=== PATIENT | female | born 1965 | race Caucasian/White ===

== ENCOUNTER 2017-06-24 07:12 | Inpatient (IN) | payer BC ==
[~2017-06-24 07:12] MED LIST: Famotidine 20 MG/2 ML SDV IVPUSH SCH; Ketorolac 30 MG/ML SDV IVPUSH SCH; Ropivacaine 49.25 ML, Ketorolac 30 MG, EPINEPHrine 0.5 MG, cloNIDine 80 MCG in Sodium C... INJECT ONE; Scopolamine 1.5 MG Transdermal Patch TRDERM SCH; ceFAZolin 1 GM in Premix Bag 1 BAG IV SCH; oxyCODONE ER 20 MG TAB.ER PO SCH
[2017-06-24] MEDS ORDERED: Propofol 200 MG/20 ML SDV ONE ×6 (07:33→10:38)
[2017-06-24] MEDS ORDERED: Lidocaine 2% 5 ML SDV ONE (07:33)
[2017-06-24] MEDS ORDERED: fentaNYL 100 MCG/2 ML SDV ONE ×2 (07:33→10:35)
[2017-06-24] MEDS ORDERED: ePHEDrine 50 MG/ML SDV ONE (07:34)
[2017-06-24] MEDS ORDERED: Midazolam 1 MG/ML 2 ML SDV ONE (07:34)
[2017-06-24] MEDS ORDERED: Ondansetron 4 MG/2 ML SDV ONE (07:34)
--- NOTE | 2017-06-24 07:34 | PCM.PREANE ---
Preanesthetic Assessment - Procedure Proposed Procedure: Bilateral total knee replacements - Anesthesia/Transfusion/Family Hx Anesthesia History: Prior Anesthesia Without Reaction Transfusion History: No Prior Transfusion(s) - Review of Systems General: No Symptoms Pulmonary: Other (hx of PE days after abdominoplasty in the past; resolved) Gastrointestinal: Other Neurological: Difficulty Walking (due to her knee pain) - Physical Assessment NPO Status Date: 06/23/17 NPO Status Time: 22:00 Height: 5 ft 6 in Weight: 170 lb ASA Class: 2 Mental Status: Alert & Oriented x3 Airway Class: Mallampati = 2 Dentition: Reports: Normal Dentition, Broken Tooth/Teeth (loose frontal lowers - pointed out by patient) Thyro-Mental Finger Breadths: 3 Mouth Opening Finger Breadths: 3 (sloped palate ) ROM/Head Extension: Limited/Partial Lungs: Clear to Auscultation, Normal Respiratory Effort Cardiovascular: Regular Rate, Regular Rhythm, No Murmurs Other: wears glasses - Allergies Allergies/Adverse Reactions: Allergies Allergy/AdvReac Type Severity Reaction Status Date / Time No Known Allergies Allergy Verified 06/19/17 13:25 - Blood Blood Available: Yes Product(s) Available: PRBC (T and S) - Anesthesia Plan Pre-Op Medication Ordered: Other (per surgeon) - Acknowledgements Anesthesia Type Planned: Spinal (probable general as well - patient dependent) Pt an Appropriate Candidate for the Planned Anesthesia: Yes Alternatives and Risks of Anesthesia Discussed w Pt/Guardian: Yes Pt/Guardian Understands and Agrees with Anesthesia Plan: Yes PreAnesthesia Questionnaire HEENT History: Reports: Other (See Below) Other HEENT History: wears glasses Cardiovascular History: Reports: Other (See Below) Other Cardiovascular History: hx en PE Respiratory History: Reports: PE Other Respiratory History: en PE following breast lumpectomy Gastrointestinal History: Reports: None Genitourinary History: Reports: None ACCOUNTING COORDINATOR History: Reports: Musculoskeletal History: Reports: Arthritis, Fracture Other Musculoskeletal History: hx fx arm as a child Psychiatric History: Reports: Depression Oncologic (Cancer) History: Reports: Breast - Past Surgical History Head Surgeries/Procedures: Reports: None GI Surgical History: Reports: Cholecystectomy Female Surgical History: Reports: Breast Biopsy, Section, Hysterectomy, Mastectomy Other Female Surgeries/Procedures: en mastectomy, c/section x3 - SUBSTANCE USE Smoking Status *Q: Never Smoker Recreational Drug Use History: No - HOME MEDS Home Medications: Home Meds Meloxicam 15 mg PO DAILY 06/19/17 [History] Venlafaxine [Effexor XR] 150 mg PO DAILY 06/19/17 [History] - CURRENT (IN HOUSE) MEDS Current Meds: Current Medications Famotidine (Pepcid) 40 mg IVPUSH ONARRIVE DULCE Stop: 06/24/17 15:00 Cefazolin Sodium/Dextrose 1 gm (/ Premix) 50 mls @ 100 mls/hr IV ONCALL DULCE Stop: 06/24/17 15:00 Lactated Ringer's (Ringers, Lactated) 1,000 mls @ 100 mls/hr IV ASDIRECTED DULCE Acetaminophen 1,000 mg/ Premix 100 mls @ 400 mls/hr IV ONCALL DULCE Stop: 06/24/17 15:00 Ketorolac Tromethamine (Toradol) 30 mg IVPUSH ONARRIVE DULCE Stop: 06/24/17 15:00 Oxycodone HCl (Oxycontin) 20 mg PO ONARRIVE DULCE Stop: 06/24/17 15:00 Scopolamine (Transderm-Scop) 1.5 mg TRDERM ONARRIVE DULCE Tranexamic Acid (Cyklokapron) 4,000 mg IV SEECOMMENT DULCE Stop: 06/24/17 15:00 Discontinued Medications Ropivacaine 49.25 ml/Ketorolac Tromethamine 30 mg/Epinephrine HCl 0.5 mg/ Clonidine HCl 80 mcg/ Sodium Chloride 100 mls @ 50 mls/min INJECT ONETIME ONE Stop: 06/24/17 06:01 Tranexamic Acid (Cyklokapron) Confirm Administered Dose 6,000 mg .ROUTE .STK- MED ONE Stop: 06/24/17 07:18
[2017-06-24] MEDS: Lactated Ringers 1,000 ML IV SCH ×2 (08:06→20:35)
[2017-06-24] MEDS: Acetaminophen 1,000 MG in Premix Bag 1 BAG IV SCH ×4 (08:08→20:47)
--- NOTE | 2017-06-24 08:33 | PCM.OPNOTE ---
- General Post-Op/Procedure Note Date of Surgery/Procedure: 06/24/17 Operative Procedure(s): B TKA Post-Op Diagnosis: DJD B knee Anesthesia Technique: General LMA, Spinal Primary Surgeon: Binta Gerardo Internal Controls Consultant: Dahiana Rascon Internal Controls Consultant: Jazz Hand EBL in mLs: 100 Condition: Good Free Text/Narrative:: tt=39 min L, 50 minutes R #[id number]
[2017-06-24] MEDS ORDERED: fentaNYL 100 MCG/2 ML SDV IVPUSH PRN (09:50)
[2017-06-24] MEDS ORDERED: HYDROmorphone 2 MG/ML Syringe IVPUSH ONE (09:50)
[2017-06-24] MEDS ORDERED: Ondansetron 4 MG/2 ML SDV IV PRN (11:12)
[2017-06-24] MEDS ORDERED: Bisacodyl 10 MG Supp RECTAL PRN (11:12)
[2017-06-24] MEDS ORDERED: diphenhydrAMINE 25 MG Cap PO PRN (11:12)
[2017-06-24] MEDS ORDERED: Morphine 4 MG/ML Syringe IVPUSH PRN (11:12)
[2017-06-24] MEDS ORDERED: Aluminum Hydroxide/Magnesium Hydroxide/Simethicone Susp 30 ML Cup PO PRN (11:12)
[2017-06-24] MEDS ORDERED: Ketorolac 30 MG/ML SDV IVPUSH SCH (11:15)
--- NOTE | 2017-06-24 12:09 | PCM.POSTAN ---
POST ANESTHESIA ASSESSMENT - MENTAL STATUS Mental Status: Alert, Oriented - VITAL SIGNS Pulse Rate: 92 SaO2: 99 Resp Rate: 14 Blood Pressure: 120/70 - RESPIRATORY Respiratory Status: Respiratory Rate WNL, Airway Patent, O2 Saturation Stable - CARDIOVASCULAR CV Status: Pulse Rate WNL, Blood Pressure Stable - GASTROINTESTINAL GI Status: No Symptoms - PAIN Pain Score: 5 - POST OP HYDRATION Hydration Status: Adequate & Stable
[2017-06-24] MEDS: oxyCODONE 5 MG Tab PO PRN ×2 (12:27→19:08)
--- NOTE | 2017-06-24 12:53 | OR ---
SURGEON: Binta Gerardo MD DATE OF PROCEDURE: 06/24/2017 PREOPERATIVE DIAGNOSIS: Degenerative joint disease, bilateral knees, tricompartmental. POSTOPERATIVE DIAGNOSIS: Degenerative joint disease, bilateral knees, tricompartmental. PROCEDURE: Bilateral total knee arthroplasty using patient-specific instrumentation. ASSISTANTS: 1. Jazz Hand PA-C. 2. Dahiana Rascon PA-C. ANESTHESIA: Spinal with sedation. ESTIMATED BLOOD LOSS: 100 mL. TOURNIQUET TIME: 39 minutes on the left and 50 minutes on the right. COMPLICATIONS: None. DVT PROPHYLAXIS: None. IMPLANTS USED: Kylie Persona femoral component size 8 standard (LPS) on the right and left femur, tibial component size F on bilateral tibia, 10 mm all-polyethylene articular surface bilaterally, and 32 mm all-polyethylene patella bilaterally. INTRAOPERATIVE FINDINGS: Showed severe tricompartmental degenerative changes on both the left and the right knee. No significant synovitis was noted. Osteophyte formation was also noted on the right knee. BRIEF HISTORY: Suly is a 51-year-old female, who has had complaint of progressive bilateral knee pain. She had failed conservative treatment. Due to her lack of response to conservative treatment, I did recommend surgical intervention. The risks and goals of procedure were discussed with the patient and were documented preoperatively. She agreed to proceed. DESCRIPTION OF PROCEDURE LEFT KNEE: The patient was properly identified and brought to the operating room. The patient was then transferred from the operating room cart and placed on the operating table in a supine position. Anesthesia was administered by the anesthesia staff. After adequate anesthesia was obtained, a well-padded tourniquet was applied to the surgical lower extremity. Perdomo catheter was placed. The lower extremity was then prepped in standard fashion using ChloraPrep solution. It was then sterilely draped. A time-out was performed to ensure correct site and procedure. Preoperative antibiotics were given along with one gram of tranexamic acid IV. The surgical site was not marked preoperatively, as it was a bilateral procedure. An Esmarch was used to exsanguinate the left lower extremity and the tourniquet was inflated. An incision was made over the anterior aspect of the knee. The subcutaneous tissues were dissected down to the level of the fascia. A medial parapatellar approach to the knee was made. A portion of the infrapatellar fat pad was then excised. The distal femur was then exposed. The femoral patient-specific cutting guide was then placed. Pins were also placed. The distal femoral cutting block was placed and the distal femoral cut was made. Instrumentation was then removed. Both Whitesides' line and the epicondylar axis were then marked with electrocautery. The 4-in-1 cutting block was placed. This was placed in a slightly externally rotated position, which corresponded well with the previously drawn lines. The cutting guide was then pinned into position. An Rashel wing guide was used to check the depth of resection of our anterior condylar cut and it was felt that no notching would occur. The anterior condylar cut was then made followed by the posterior condylar cut. Both the posterior chamfer and anterior chamfer cuts were then made. The cutting block was then removed along with the excess bony remnants. We then turned our attention to the tibia. The anterior cruciate ligament and posterior cruciate ligament were released and a posterior cruciate ligament retractor was placed to allow the tibia to be pulled anteriorly. The tibial patient-specific guide was then placed on the proximal tibia. This fit anatomically. The pins were then placed. The proximal tibia cutting guide was then placed and screwed into position. The proximal tibial resection was then made with care being taken to protect the patellar tendon. The bony resection was then removed. The remainder of the medial and lateral meniscus were then excised. Care was taken to protect the popliteus tendon. The tibia was then sized to the appropriate size. The distal femur was then elevated. The posterior capsule was stripped off the distal femur both medially and laterally. The posterior capsule along with the medial and lateral gutters were then injected with a standard mixture consisting of clonidine, epinephrine, Toradol, and Ropivacaine, unless any allergies were found preoperatively. The femoral component was then placed onto the distal femur in a slightly lateral position. This fit the femur well. A box cut was then made without difficulty. This was then removed. The tibial trial along with the polyethylene liner was then placed. The knee came easily into full extension and was stable to varus and valgus stressing both in full extension and flexion. Any additional releases were performed at this time. We then returned our attention to the patella. The patella was everted and towel clamps were used to hold the patella in position. It was resected to a 15 millimeter thickness. It was then sized to the appropriate size. It was prepared in the usual fashion after placing the predetermined size clamps. This was placed in a slightly superior and medial position. The clamp was then removed. The patellar trial button was placed. The knee was taken through a range of motion using the no-touch technique. The patella tracked centrally. A drop man was then placed to check alignment. All instruments were then removed from the knee. The tibial sizer was then placed on the tibia. The tibia was prepared in the usual fashion using the reamer and broach. This was then removed. All bony surfaces were copiously irrigated with Pulsavac solution. They were then suctioned dry. Cement was prepared on the back table in the usual manner. Once it was prepared, the bone ends were again suctioned dry. The tibia was cemented into place first. This was malleted into position. Excess cement was then cleared. The femur was then placed in a similar manner. We placed the polyethylene trial into place and the knee was brought into full extension. An axial load was placed while keeping the knee in full extension. The patella button was also cemented into position and the clamp was used to hold this in place as the cement was allowed to cure. The wound was again copiously irrigated with saline solution using a Pulsavac car jockey. Following this 1 g of tranexamic acid was applied to the wound topically. After we had adequate curing of the cement, the knee was again taken through a range of motion. The size of the polyethylene was then determined. The polyethylene trial was then removed. The tibial tray was suctioned to make sure there was no remaining soft tissue or cement. Excess cement was cleared from around the edges of the prosthesis as well. The tourniquet was then deflated. We were able to observe for any excess bleeding and none was noted. Electrocautery was used to maintain hemostasis. An additional gram of tranexamic acid was given IV. The retractors were again placed and the predetermined polyethylene was then placed. This was locked into position without difficulty. The knee was again taken through a range of motion with no change from the prior exam. The fascial layer was closed with Number One Vicryl. The subcutaneous tissues were closed with 2-0 Vicryl. The skin was closed with allison. Xeroform gauze was placed over the wound and a bulky dressing was applied. DESCRIPTION OF PROCEDURE RIGHT KNEE: An Esmarch was used to exsanguinate the right lower extremity and the tourniquet was inflated. An incision was made over the anterior aspect of the knee. The subcutaneous tissues were dissected down to the level of the fascia. A medial parapatellar approach to the knee was made. A portion of the infrapatellar fat pad was then excised. The distal femur was then exposed. The femoral patient-specific cutting guide was then placed. Pins were also placed. The distal femoral cutting block was placed and the distal femoral cut was made. Instrumentation was then removed. Both Whitesides' line and the epicondylar axis were then marked with electrocautery. The 4-in-1 cutting block was placed. This was placed in a slightly externally rotated position, which corresponded well with the previously drawn lines. The cutting guide was then pinned into position. An Rashel wing guide was used to check the depth of resection of our anterior condylar cut and it was felt that no notching would occur. The anterior condylar cut was then made followed by the posterior condylar cut. Both the posterior chamfer and anterior chamfer cuts were then made. The cutting block was then removed along with the excess bony remnants. We then turned our attention to the tibia. The anterior cruciate ligament and posterior cruciate ligament were released and a posterior cruciate ligament retractor was placed to allow the tibia to be pulled anteriorly. The tibial patient-specific guide was then placed on the proximal tibia. This fit anatomically. The pins were then placed. The proximal tibia cutting guide was then placed and screwed into position. The proximal tibial resection was then made with care being taken to protect the patellar tendon. The bony resection was then removed. The remainder of the medial and lateral meniscus were then excised. Care was taken to protect the popliteus tendon. The tibia was then sized to the appropriate size. The distal femur was then elevated. The posterior capsule was stripped off the distal femur both medially and laterally. The posterior capsule along with the medial and lateral gutters were then injected with a standard mixture consisting of clonidine, epinephrine, Toradol, and Ropivacaine, unless any allergies were found preoperatively. The femoral component was then placed onto the distal femur in a slightly lateral position. This fit the femur well. A box cut was then made without difficulty. This was then removed. The tibial trial along with the polyethylene liner was then placed. The knee came easily into full extension and was stable to varus and valgus stressing both in full extension and flexion. Any additional releases were performed at this time. We then returned our attention to the patella. The patella was everted and towel clamps were used to hold the patella in position. It was resected to a 15 millimeter thickness. It was then sized to the appropriate size. It was prepared in the usual fashion after placing the predetermined size clamps. This was placed in a slightly superior and medial position. The clamp was then removed. The patellar trial button was placed. The knee was taken through a range of motion using the no-touch technique. The patella tracked centrally. A drop man was then placed to check alignment. All instruments were then removed from the knee. The tibial sizer was then placed on the tibia. The tibia was prepared in the usual fashion using the reamer and broach. This was then removed. All bony surfaces were copiously irrigated with Pulsavac solution. They were then suctioned dry. Cement was prepared on the back table in the usual manner. Once it was prepared, the bone ends were again suctioned dry. The tibia was cemented into place first. This was malleted into position. Excess cement was then cleared. The femur was then placed in a similar manner. We placed the polyethylene trial into place and the knee was brought into full extension. An axial load was placed while keeping the knee in full extension. The patella button was also cemented into position and the clamp was used to hold this in place as the cement was allowed to cure. The wound was again copiously irrigated with saline solution using a Pulsavac car jockey. Following this 1 g of tranexamic acid was applied to the wound topically. After we had adequate curing of the cement, the knee was again taken through a range of motion. The size of the polyethylene was then determined. The polyethylene trial was then removed. The tibial tray was suctioned to make sure there was no remaining soft tissue or cement. Excess cement was cleared from around the edges of the prosthesis as well. The tourniquet was then deflated. We were able to observe for any excess bleeding and none was noted. Electrocautery was used to maintain hemostasis. An additional gram of tranexamic acid was given IV. The retractors were again placed and the predetermined polyethylene was then placed. This was locked into position without difficulty. The knee was again taken through a range of motion with no change from the prior exam. The fascial layer was closed with Number One Vicryl. The subcutaneous tissues were closed with 2-0 Vicryl. The skin was closed with allison. Xeroform gauze was placed over the wound and a bulky dressing was applied. The patient was then awakened from anesthesia and transferred back to the operating room cart. They were brought to the recovery room in stable condition. All needle and sponge counts were correct. TAMEKA SOSA /[id number] MTDAlma
[2017-06-24] MEDS: Ketorolac 30 MG/ML SDV IVPUSH SCH ×2 (13:19→20:41)
--- NOTE | 2017-06-24 15:59 | CR ---
EXAMINATION: Bilateral knees HISTORY: Arthroplasty COMPARISON: 05/21/2017 TECHNIQUE: 2 views bilaterally FINDINGS/IMPRESSION: Bilateral total knee hardware demonstrated in good position and alignment. Posto perative soft tissue changes are noted. No acute findings.
[2017-06-24] MEDS: ceFAZolin 1 GM in Premix Bag 1 BAG IV SCH (17:12)
[2017-06-24] MEDS: Venlafaxine 75 MG Cap.ER PO SCH (17:12)
--- NOTE | 2017-06-24 18:40 | PCM48HPAN ---
Post Anesthesia Note - EVALUATION WITHIN 48HRS OF ANESTHETIC Vital Signs in Normal Range: Yes Patient Participated in Evaluation: Yes Respiratory Function Stable: Yes Airway Patent: Yes Cardiovascular Function Stable: Yes Hydration Status Stable: Yes Pain Control Satisfactory: Yes Nausea and Vomiting Control Satisfactory: Yes Mental Status Recovered: Yes - COMMENTS/OBSERVATIONS Free Text/Narrative:: Pt doing well postop with no complaints of pain or nausea. Pt states she has been out of bed and walking already. No apparent anesthesia complications.
[2017-06-24] MEDS: Docusate Sodium 100 MG Cap PO SCH (20:39)
[2017-06-24] MEDS: oxyCODONE ER 20 MG TAB.ER PO SCH (20:39)
[2017-06-25] MEDS: oxyCODONE 5 MG Tab PO PRN ×6 (00:28→21:32)
[2017-06-25] MEDS: ceFAZolin 1 GM in Premix Bag 1 BAG IV SCH (00:29)
[2017-06-25] MEDS: Acetaminophen 500 MG Tab PO SCH ×4 (01:59→20:05)
[2017-06-25] MEDS: Ketorolac 30 MG/ML SDV IVPUSH SCH (02:00)
[2017-06-25] MEDS ORDERED: Sodium Chloride 0.9% 10 ML Syringe FLUSH PRN (08:28)
[2017-06-25] MEDS ORDERED: Sodium Chloride 0.9% 2.5 ML Syringe FLUSH PRN (08:28)
--- NOTE | 2017-06-25 08:28 | PCM.SURGPN ---
<Jazz Hand - Last Filed: 06/25/17 08:25> - General Info Date of Service: 06/25/17 Date of Surgery/Procedure: 06/24/17 POD#: 1 Functional Status: Reports: Pain Controlled, Tolerating Diet, Ambulating, Urinating - Review of Systems General: Reports: No Symptoms Pulmonary: Reports: No Symptoms Cardiovascular: Reports: No Symptoms Gastrointestinal: Reports: No Symptoms Genitourinary: Reports: No Symptoms Musculoskeletal: Reports: Leg Pain, Joint Pain, Joint Swelling Neurological: Reports: No Symptoms Psychiatric: Reports: No Symptoms - Patient Data Vitals - Most Recent: Last Vital Signs Temp 36.6 C 06/25/17 05:47 Pulse 97 06/25/17 05:47 Resp 19 06/25/17 05:47 BP 119/68 06/25/17 05:47 Pulse Ox 91 L 06/25/17 05:47 Weight - Most Recent: 77.111 kg I&O - Last 24 Hours: Intake & Output 06/24/17 06/25/17 06/25/17 22:59 06:59 14:59 Intake Total 1600 600 Output Total 425 1200 Balance 1175 -600 Lab Results Last 24 Hrs: Laboratory Results - last 24 hr 06/25/17 Range/Units 07:07 Hgb 11.4 L (12.0-16.0) g/dL Hct 36.2 (36.0-46.0) % Med Orders - Current: Current Medications Acetaminophen (Tylenol Extra Strength) 1,000 mg PO Q6H [facility] Last Admin: 06/25/17 07:53 Dose: 1,000 mg Al Hydroxide/Mg Hydroxide (Mag-Al Plus) 30 ml PO Q4H PRN PRN Reason: indigestion Bisacodyl (Dulcolax) 10 mg RECTAL DAILY PRN PRN Reason: Constipation Celecoxib (Celebrex) 200 mg PO DAILY [facility] Diphenhydramine HCl (Benadryl) 25 - 50 mg PO Q6H PRN PRN Reason: Itching Docusate Sodium (Colace) 100 mg PO BID [facility] Last Admin: 06/24/17 20:39 Dose: 100 mg Lactated Ringer's (Ringers, Lactated) 1,000 mls @ 100 mls/hr IV ASDIRECTED [facility] Last Admin: 06/24/17 20:35 Dose: 100 mls/hr Morphine Sulfate (Morphine) 1 - 3 mg IVPUSH Q3H PRN PRN Reason: Pain Ondansetron HCl (Zofran) 4 mg IV Q6HR PRN PRN Reason: NAUSEA/VOMITING Last Admin: 06/25/17 07:52 Dose: 4 mg Oxycodone HCl (Oxycodone) 5 - 10 mg PO Q4H PRN PRN Reason: Pain Last Admin: 06/25/17 05:47 Dose: 5 mg Oxycodone HCl (Oxycontin) 20 mg PO Q12HR [facility] Last Admin: 06/24/17 20:39 Dose: 20 mg Rivaroxaban (Xarelto) 10 mg PO DAILY [facility] Scopolamine (Transderm-Scop) 1.5 mg TRDERM ONARRIVE [facility] Last Admin: 06/24/17 08:06 Dose: 1.5 mg Venlafaxine HCl (Effexor Xr) 150 mg PO DAILY [facility] Last Admin: 06/24/17 17:12 Dose: 150 mg Discontinued Medications Aspirin (Aspirin) 325 mg PO BID [facility] Ephedrine Sulfate (Ephedrine Sulfate) Confirm Administered Dose 100 mg .ROUTE .STK-MED ONE Stop: 06/24/17 07:35 Famotidine (Pepcid) 40 mg IVPUSH ONARRIVE [facility] Stop: 06/24/17 15:00 Last Admin: 06/24/17 08:07 Dose: 40 mg Fentanyl (Sublimaze) Confirm Administered Dose 200 mcg .ROUTE .STK-MED ONE Stop: 06/24/17 07:34 Fentanyl (Sublimaze) 50 mcg IVPUSH Q5M PRN PRN Reason: Pain (severe 7-10) Stop: 06/25/17 09:50 Fentanyl (Sublimaze) Confirm Administered Dose 100 mcg .ROUTE .STK-MED ONE Stop: 06/24/17 10:36 Hydromorphone HCl (Dilaudid) 0 mg IVPUSH ONETIME ONE Stop: 06/24/17 09:51 Last Admin: 06/24/17 19:28 Dose: Not Given Cefazolin Sodium/Dextrose 1 gm (/ Premix) 50 mls @ 100 mls/hr IV ONCALL [facility] Stop: 06/24/17 15:00 Ropivacaine 49.25 ml/Ketorolac Tromethamine 30 mg/Epinephrine HCl 0.5 mg/ Clonidine HCl 80 mcg/ Sodium Chloride 100 mls @ 50 mls/min INJECT ONETIME ONE Stop: 06/24/17 06:01 Last Admin: 06/24/17 19:29 Dose: Not Given Acetaminophen 1,000 mg/ Premix 100 mls @ 400 mls/hr IV ONCALL [facility] Stop: 06/24/17 15:00 Last Admin: 06/24/17 08:12 Dose: 400 mls/hr Cefazolin Sodium/Dextrose (Ancef) Confirm Administered Dose 50 mls @ as directed .ROUTE .STK-MED ONE Stop: 06/24/17 07:33 Ropivacaine 49.25 ml/Ketorolac Tromethamine 30 mg/Epinephrine HCl 0.5 mg/ Clonidine HCl 80 mcg/ Sodium Chloride 100 mls @ 50 mls/min INJECT ONETIME ONE Stop: 06/24/17 06:01 Last Admin: 06/24/17 19:29 Dose: Not Given Acetaminophen 1,000 mg/ Premix 100 mls @ 400 mls/hr IV Q6H [facility] Stop: 06/24/17 20:14 Last Admin: 06/24/17 20:47 Dose: 400 mls/hr Cefazolin Sodium/Dextrose 1 gm (/ Premix) 50 mls @ 100 mls/hr IV Q8H [facility] Stop: 06/25/17 00:29 Last Admin: 06/25/17 00:29 Dose: 100 mls/hr Ketorolac Tromethamine (Toradol) 30 mg IVPUSH ONARRIVE [facility] Stop: 06/24/17 15:00 Last Admin: 06/24/17 08:07 Dose: 30 mg Ketorolac Tromethamine (Toradol) 30 mg IVPUSH ONARRIVE [facility] Ketorolac Tromethamine (Toradol) 30 mg IVPUSH Q6H [facility] Stop: 06/25/17 02:01 Last Admin: 06/25/17 02:00 Dose: 30 mg Lidocaine (Xylocaine-Mpf 2%) Confirm Administered Dose 10 ml .ROUTE .STK-MED ONE Stop: 06/24/17 07:34 Midazolam HCl (Versed 1 Mg/Ml) Confirm Administered Dose 2 mg .ROUTE .STK-MED ONE Stop: 06/24/17 07:35 Ondansetron HCl (Zofran) Confirm Administered Dose 4 mg .ROUTE .STK-MED ONE Stop: 06/24/17 07:35 Oxycodone HCl (Oxycontin) 20 mg PO ONARRIVE [facility] Stop: 06/24/17 15:00 Last Admin: 06/24/17 08:06 Dose: 20 mg Propofol (Diprivan 20 Ml) Confirm Administered Dose 400 mg .ROUTE .STK-MED ONE Stop: 06/24/17 07:34 Propofol (Diprivan 20 Ml) Confirm Administered Dose 200 mg .ROUTE .STK-MED ONE Stop: 06/24/17 08:58 Propofol (Diprivan 20 Ml) Confirm Administered Dose 200 mg .ROUTE .STK-MED ONE Stop: 06/24/17 09:25 Propofol (Diprivan 20 Ml) Confirm Administered Dose 200 mg .ROUTE .STK-MED ONE Stop: 06/24/17 10:15 Propofol (Diprivan 20 Ml) Confirm Administered Dose 200 mg .ROUTE .STK-MED ONE Stop: 06/24/17 10:19 Propofol (Diprivan 20 Ml) Confirm Administered Dose 200 mg .ROUTE .STK-MED ONE Stop: 06/24/17 10:39 Tranexamic Acid (Cyklokapron) 4,000 mg IV SEECOMMENT [facility] Stop: 06/24/17 15:00 Tranexamic Acid (Cyklokapron) Confirm Administered Dose 6,000 mg .ROUTE .STK- MED ONE Stop: 06/24/17 07:18 - Exam Wound/Incisions: Dressing Dry and Intact General: Alert, Oriented HEENT: Pupils Equal, Pupils Reactive Neck: Trachea Midline Lungs: Normal Respiratory Effort Cardiovascular: Regular Rate Extremities: Other (R and L anterior tibialis, extensor hallucis longus and gastrocnemius strength +5/5 bilaterally. Sensation intact. Dorsalis pedis and posterior tibial pulses +2 bilaterally. ) Neurological: No New Focal Deficit Psy/Mental Status: Alert, Normal Affect, Normal Mood - Problem List Review Problem List Initiated/Reviewed/Updated: Yes - My Orders Last 24 Hours: Active Orders 24 hr Category Date Time Status Patient Status [ADT] Routine ADT 06/24/17 08:30 Active Activity as Tolerated [RC] .Routine Care 06/24/17 11:12 Active Intake and Output [RC] Q12H Care 06/24/17 11:12 Active Neurovascular Check [RC] Q2HR Care 06/24/17 11:12 Active Notify Provider Vital Signs [RC] ASDIRECTED Care 06/24/17 11:12 Active RT Incentive Spirometry [RC] ASDIRECTED Care 06/24/17 11:12 Active Vital Signs [RC] Q4H Care 06/24/17 11:12 Active PT Evaluation and Treatment [CONS] Routine Cons 06/24/17 11:12 Active HEMOGLOBIN/HEMATOCRIT,HH [HEME] DAILY Lab 06/26/17 07:00 Ordered HEMOGLOBIN/HEMATOCRIT,HH [HEME] DAILY Lab 06/27/17 07:00 Ordered Acetaminophen [Tylenol Extra Strength] Med 06/25/17 02:00 Active 1,000 mg PO Q6H Alum Hydrox/Mag Hydrox/Simeth [Mag-Al Plus] Med 06/24/17 11:12 Active 30 ml PO Q4H PRN Bisacodyl [Dulcolax] Med 06/24/17 11:12 Active 10 mg RECTAL DAILY PRN Celecoxib [CeleBREX] Med 06/25/17 09:00 Active 200 mg PO DAILY Docusate Sodium [Colace] Med 06/24/17 21:00 Active 100 mg PO BID Morphine Med 06/24/17 11:12 Active 1 - 3 mg IVPUSH Q3H PRN Ondansetron [Zofran] Med 06/24/17 11:12 Active 4 mg IV Q6HR PRN Rivaroxaban [Xarelto] Med 06/25/17 09:00 Active 10 mg PO DAILY Venlafaxine [Effexor XR] Med 06/24/17 16:00 Active 150 mg PO DAILY diphenhydrAMINE [Benadryl] Med 06/24/17 11:12 Active 25 - 50 mg PO Q6H PRN oxyCODONE Med 06/24/17 11:12 Active 5 - 10 mg PO Q4H PRN oxyCODONE ER [OxyCONTIN] Med 06/24/17 21:00 Active 20 mg PO Q12HR Medication Orders Acetaminophen (Tylenol Extra Strength) 1,000 mg PO Q6H [facility] Last Admin: 06/25/17 07:53 Dose: 1,000 mg Admin: 06/25/17 01:59 Dose: 1,000 mg Al Hydroxide/Mg Hydroxide (Mag-Al Plus) 30 ml PO Q4H PRN PRN Reason: indigestion Bisacodyl (Dulcolax) 10 mg RECTAL DAILY PRN PRN Reason: Constipation Celecoxib (Celebrex) 200 mg PO DAILY [facility] Diphenhydramine HCl (Benadryl) 25 - 50 mg PO Q6H PRN PRN Reason: Itching Docusate Sodium (Colace) 100 mg PO BID [facility] Last Admin: 06/24/17 20:39 Dose: 100 mg Lactated Ringer's (Ringers, Lactated) 1,000 mls @ 100 mls/hr IV ASDIRECTED [facility] Last Admin: 06/24/17 20:35 Dose: 100 mls/hr Infusion: 06/24/17 18:06 Dose: 100 mls/hr Admin: 06/24/17 08:06 Dose: 100 mls/hr Morphine Sulfate (Morphine) 1 - 3 mg IVPUSH Q3H PRN PRN Reason: Pain Ondansetron HCl (Zofran) 4 mg IV Q6HR PRN PRN Reason: NAUSEA/VOMITING Last Admin: 06/25/17 07:52 Dose: 4 mg Oxycodone HCl (Oxycodone) 5 - 10 mg PO Q4H PRN PRN Reason: Pain Last Admin: 06/25/17 05:47 Dose: 5 mg Admin: 06/25/17 00:28 Dose: 5 mg Admin: 06/24/17 19:08 Dose: 5 mg Admin: 06/24/17 12:27 Dose: 10 mg Oxycodone HCl (Oxycontin) 20 mg PO Q12HR [facility] Last Admin: 06/24/17 20:39 Dose: 20 mg Rivaroxaban (Xarelto) 10 mg PO DAILY [facility] Scopolamine (Transderm-Scop) 1.5 mg TRDERM ONARRIVE [facility] Last Admin: 06/24/17 08:06 Dose: 1.5 mg Venlafaxine HCl (Effexor Xr) 150 mg PO DAILY [facility] Last Admin: 06/24/17 17:12 Dose: 150 mg - Assessment Assessment (Free Text/Narrative):: Patient up to chair this AM. Pain well controlled. Tolerating diet, did report nausea this AM. VSS. UO 2225 mL. Hgb 11.4. - Plan Plan (Free Text/Narrative):: Continue PT. Continue pain management. Discontinue brizuela and LRs. Encourage PO fluid intake. Start Xarelto 10mg daily for DVT prophylaxis. Probable discharge home tomorrow. <Binta Gerardo R - Last Filed: 06/25/17 18:20> - Patient Data Vitals - Most Recent: Last Vital Signs Temp 96.7 F 06/25/17 16:00 Pulse 119 H 06/25/17 16:00 Resp 16 06/25/17 16:00 BP 123/65 06/25/17 16:00 Pulse Ox 92 L 06/25/17 16:00 I&O - Last 24 Hours: Intake & Output 06/25/17 06/25/17 06/25/17 06:59 14:59 22:59 Intake Total 600 850 Output Total 1200 400 Balance -600 450 Lab Results Last 24 Hrs: Laboratory Results - last 24 hr 06/25/17 Range/Units 07:07 Hgb 11.4 L (12.0-16.0) g/dL Hct 36.2 (36.0-46.0) % Med Orders - Current: Current Medications Acetaminophen (Tylenol Extra Strength) 1,000 mg PO Q6H [facility] Last Admin: 06/25/17 13:02 Dose: 1,000 mg Al Hydroxide/Mg Hydroxide (Mag-Al Plus) 30 ml PO Q4H PRN PRN Reason: indigestion Bisacodyl (Dulcolax) 10 mg RECTAL DAILY PRN PRN Reason: Constipation Celecoxib (Celebrex) 200 mg PO DAILY [facility] Last Admin: 06/25/17 09:19 Dose: 200 mg Diphenhydramine HCl (Benadryl) 25 - 50 mg PO Q6H PRN PRN Reason: Itching Docusate Sodium (Colace) 100 mg PO BID [facility] Last Admin: 06/25/17 09:18 Dose: 100 mg Morphine Sulfate (Morphine) 1 - 3 mg IVPUSH Q3H PRN PRN Reason: Pain Ondansetron HCl (Zofran) 4 mg IV Q6HR PRN PRN Reason: NAUSEA/VOMITING Last Admin: 06/25/17 07:52 Dose: 4 mg Oxycodone HCl (Oxycodone) 5 - 10 mg PO Q4H PRN PRN Reason: Pain Last Admin: 06/25/17 17:17 Dose: 5 mg Oxycodone HCl (Oxycontin) 20 mg PO Q12HR [facility] Last Admin: 06/25/17 09:19 Dose: 20 mg Rivaroxaban (Xarelto) 10 mg PO DAILY [facility] Last Admin: 06/25/17 09:19 Dose: 10 mg Scopolamine (Transderm-Scop) 1.5 mg TRDERM ONARRIVE [facility] Last Admin: 06/24/17 08:06 Dose: 1.5 mg Sodium Chloride (Saline Flush) 10 ml FLUSH ASDIRECTED PRN PRN Reason: Keep Vein Open Sodium Chloride (Saline Flush) 2.5 ml FLUSH ASDIRECTED PRN PRN Reason: Keep Vein Open Venlafaxine HCl (Effexor Xr) 150 mg PO DAILY [facility] Last Admin: 06/25/17 09:18 Dose: 150 mg Discontinued Medications Aspirin (Aspirin) 325 mg PO BID [facility] Ephedrine Sulfate (Ephedrine Sulfate) Confirm Administered Dose 100 mg .ROUTE .STK-MED ONE Stop: 06/24/17 07:35 Famotidine (Pepcid) 40 mg IVPUSH ONARRIVE [facility] Stop: 06/24/17 15:00 Last Admin: 06/24/17 08:07 Dose: 40 mg Fentanyl (Sublimaze) Confirm Administered Dose 200 mcg .ROUTE .STK-MED ONE Stop: 06/24/17 07:34 Fentanyl (Sublimaze) 50 mcg IVPUSH Q5M PRN PRN Reason: Pain (severe 7-10) Stop: 06/25/17 09:50 Fentanyl (Sublimaze) Confirm Administered Dose 100 mcg .ROUTE .STK-MED ONE Stop: 06/24/17 10:36 Hydromorphone HCl (Dilaudid) 0 mg IVPUSH ONETIME ONE Stop: 06/24/17 09:51 Last Admin: 06/24/17 19:28 Dose: Not Given Cefazolin Sodium/Dextrose 1 gm (/ Premix) 50 mls @ 100 mls/hr IV ONCALL [facility] Stop: 06/24/17 15:00 Ropivacaine 49.25 ml/Ketorolac Tromethamine 30 mg/Epinephrine HCl 0.5 mg/ Clonidine HCl 80 mcg/ Sodium Chloride 100 mls @ 50 mls/min INJECT ONETIME ONE Stop: 06/24/17 06:01 Last Admin: 06/24/17 19:29 Dose: Not Given Lactated Ringer's (Ringers, Lactated) 1,000 mls @ 100 mls/hr IV ASDIRECTED [facility] Last Admin: 06/24/17 20:35 Dose: 100 mls/hr Acetaminophen 1,000 mg/ Premix 100 mls @ 400 mls/hr IV ONCALL [facility] Stop: 06/24/17 15:00 Last Admin: 06/24/17 08:12 Dose: 400 mls/hr Cefazolin Sodium/Dextrose (Ancef) Confirm Administered Dose 50 mls @ as directed .ROUTE .STK-MED ONE Stop: 06/24/17 07:33 Ropivacaine 49.25 ml/Ketorolac Tromethamine 30 mg/Epinephrine HCl 0.5 mg/ Clonidine HCl 80 mcg/ Sodium Chloride 100 mls @ 50 mls/min INJECT ONETIME ONE Stop: 06/24/17 06:01 Last Admin: 06/24/17 19:29 Dose: Not Given Acetaminophen 1,000 mg/ Premix 100 mls @ 400 mls/hr IV Q6H [facility] Stop: 06/24/17 20:14 Last Admin: 06/24/17 20:47 Dose: 400 mls/hr Cefazolin Sodium/Dextrose 1 gm (/ Premix) 50 mls @ 100 mls/hr IV Q8H [facility] Stop: 06/25/17 00:29 Last Admin: 06/25/17 00:29 Dose: 100 mls/hr Ketorolac Tromethamine (Toradol) 30 mg IVPUSH ONARRIVE [facility] Stop: 06/24/17 15:00 Last Admin: 06/24/17 08:07 Dose: 30 mg Ketorolac Tromethamine (Toradol) 30 mg IVPUSH ONARRIVE [facility] Ketorolac Tromethamine (Toradol) 30 mg IVPUSH Q6H [facility] Stop: 06/25/17 02:01 Last Admin: 06/25/17 02:00 Dose: 30 mg Lidocaine (Xylocaine-Mpf 2%) Confirm Administered Dose 10 ml .ROUTE .STK-MED ONE Stop: 06/24/17 07:34 Midazolam HCl (Versed 1 Mg/Ml) Confirm Administered Dose 2 mg .ROUTE .STK-MED ONE Stop: 06/24/17 07:35 Ondansetron HCl (Zofran) Confirm Administered Dose 4 mg .ROUTE .STK-MED ONE Stop: 06/24/17 07:35 Oxycodone HCl (Oxycontin) 20 mg PO ONARRIVE [facility] Stop: 06/24/17 15:00 Last Admin: 06/24/17 08:06 Dose: 20 mg Propofol (Diprivan 20 Ml) Confirm Administered Dose 400 mg .ROUTE .STK-MED ONE Stop: 06/24/17 07:34 Propofol (Diprivan 20 Ml) Confirm Administered Dose 200 mg .ROUTE .STK-MED ONE Stop: 06/24/17 08:58 Propofol (Diprivan 20 Ml) Confirm Administered Dose 200 mg .ROUTE .STK-MED ONE Stop: 06/24/17 09:25 Propofol (Diprivan 20 Ml) Confirm Administered Dose 200 mg .ROUTE .STK-MED ONE Stop: 06/24/17 10:15 Propofol (Diprivan 20 Ml) Confirm Administered Dose 200 mg .ROUTE .STK-MED ONE Stop: 06/24/17 10:19 Propofol (Diprivan 20 Ml) Confirm Administered Dose 200 mg .ROUTE .STK-MED ONE Stop: 06/24/17 10:39 Tranexamic Acid (Cyklokapron) 4,000 mg IV SEECOMMENT [facility] Stop: 06/24/17 15:00 Tranexamic Acid (Cyklokapron) Confirm Administered Dose 6,000 mg .ROUTE .STK- MED ONE Stop: 06/24/17 07:18 - My Orders Last 24 Hours: Active Orders 24 hr Category Date Time Status Urinary Catheter Removal [RC] Per Unit Routine Care 06/25/17 08:28 Active HEMOGLOBIN/HEMATOCRIT,HH [HEME] DAILY Lab 06/26/17 07:00 Ordered HEMOGLOBIN/HEMATOCRIT,HH [HEME] DAILY Lab 06/27/17 07:00 Ordered Acetaminophen [Tylenol Extra Strength] Med 06/25/17 02:00 Active 1,000 mg PO Q6H Celecoxib [CeleBREX] Med 06/25/17 09:00 Active 200 mg PO DAILY Docusate Sodium [Colace] Med 06/24/17 21:00 Active 100 mg PO BID Rivaroxaban [Xarelto] Med 06/25/17 09:00 Active 10 mg PO DAILY Sodium Chloride 0.9% [Saline Flush] Med 06/25/17 08:28 Active 10 ml FLUSH ASDIRECTED PRN Sodium Chloride 0.9% [Saline Flush] Med 06/25/17 08:28 Active 2.5 ml FLUSH ASDIRECTED PRN oxyCODONE ER [OxyCONTIN] Med 06/24/17 21:00 Active 20 mg PO Q12HR Convert IV to Saline Lock [OM.PC] Routine Oth 06/25/17 08:28 Ordered Medication Orders Acetaminophen (Tylenol Extra Strength) 1,000 mg PO Q6H [facility] Last Admin: 06/25/17 13:02 Dose: 1,000 mg Admin: 06/25/17 07:53 Dose: 1,000 mg Admin: 06/25/17 01:59 Dose: 1,000 mg Al Hydroxide/Mg Hydroxide (Mag-Al Plus) 30 ml PO Q4H PRN PRN Reason: indigestion Bisacodyl (Dulcolax) 10 mg RECTAL DAILY PRN PRN Reason: Constipation Celecoxib (Celebrex) 200 mg PO DAILY [facility] Last Admin: 06/25/17 09:19 Dose: 200 mg Diphenhydramine HCl (Benadryl) 25 - 50 mg PO Q6H PRN PRN Reason: Itching Docusate Sodium (Colace) 100 mg PO BID [facility] Last Admin: 06/25/17 09:18 Dose: 100 mg Admin: 06/24/17 20:39 Dose: 100 mg Morphine Sulfate (Morphine) 1 - 3 mg IVPUSH Q3H PRN PRN Reason: Pain Ondansetron HCl (Zofran) 4 mg IV Q6HR PRN PRN Reason: NAUSEA/VOMITING Last Admin: 06/25/17 07:52 Dose: 4 mg Oxycodone HCl (Oxycodone) 5 - 10 mg PO Q4H PRN PRN Reason: Pain Last Admin: 06/25/17 17:17 Dose: 5 mg Admin: 06/25/17 14:59 Dose: 5 mg Admin: 06/25/17 10:51 Dose: 10 mg Admin: 06/25/17 05:47 Dose: 5 mg Admin: 06/25/17 00:28 Dose: 5 mg Admin: 06/24/17 19:08 Dose: 5 mg Admin: 06/24/17 12:27 Dose: 10 mg Oxycodone HCl (Oxycontin) 20 mg PO Q12HR [facility] Last Admin: 06/25/17 09:19 Dose: 20 mg Admin: 12/11/17 20:39 Dose: 20 mg Rivaroxaban (Xarelto) 10 mg PO DAILY [facility] Last Admin: 06/25/17 09:19 Dose: 10 mg Scopolamine (Transderm-Scop) 1.5 mg TRDERM ONARRIVE [facility] Last Admin: 06/24/17 08:06 Dose: 1.5 mg Sodium Chloride (Saline Flush) 10 ml FLUSH ASDIRECTED PRN PRN Reason: Keep Vein Open Sodium Chloride (Saline Flush) 2.5 ml FLUSH ASDIRECTED PRN PRN Reason: Keep Vein Open Venlafaxine HCl (Effexor Xr) 150 mg PO DAILY [facility] Last Admin: 06/25/17 09:18 Dose: 150 mg Admin: 06/24/17 17:12 Dose: 150 mg - Plan Plan (Free Text/Narrative):: 1820 Patient seen and examined. Agree with above note. Patient doing well. Progressing with PT. Pain well controlled VSS, afeb hgb stable POD #1 1. continue PT and mobilization 2. Xarelto for DVT prophylaxis--h/o PE 3. plan discharge home tomorrow
[2017-06-25] MEDS ORDERED: Aspirin 325 MG Tab PO SCH (09:00)
[2017-06-25] MEDS: Docusate Sodium 100 MG Cap PO SCH ×2 (09:18→20:05)
[2017-06-25] MEDS: Venlafaxine 75 MG Cap.ER PO SCH (09:18)
[2017-06-25] MEDS: Celecoxib 100 MG Cap PO SCH (09:19)
[2017-06-25] MEDS: Rivaroxaban 10 MG Tab PO SCH (09:19)
[2017-06-25] MEDS: oxyCODONE ER 20 MG TAB.ER PO SCH ×2 (09:19→20:05)
[2017-06-26] MEDS: Acetaminophen 500 MG Tab PO SCH ×4 (01:52→20:08)
[2017-06-26] MEDS: oxyCODONE 5 MG Tab PO PRN ×3 (03:44→16:03)
[2017-06-26] MEDS: Docusate Sodium 100 MG Cap PO SCH ×2 (08:03→20:08)
[2017-06-26] MEDS: Rivaroxaban 10 MG Tab PO SCH (08:03)
[2017-06-26] MEDS: Celecoxib 100 MG Cap PO SCH (08:03)
[2017-06-26] MEDS: Venlafaxine 75 MG Cap.ER PO SCH (08:03)
[2017-06-26] MEDS: oxyCODONE ER 20 MG TAB.ER PO SCH ×2 (08:04→20:08)
--- NOTE | 2017-06-26 08:04 | PCM.SURGPN ---
- General Info Date of Service: 06/26/17 Date of Surgery/Procedure: 06/24/17 POD#: 2 Functional Status: Reports: Pain Controlled, Tolerating Diet, Ambulating, Urinating - Review of Systems General: Reports: No Symptoms Pulmonary: Reports: No Symptoms Cardiovascular: Reports: No Symptoms Gastrointestinal: Reports: No Symptoms Genitourinary: Reports: No Symptoms Musculoskeletal: Reports: Leg Pain, Joint Pain, Joint Swelling Neurological: Reports: No Symptoms Psychiatric: Reports: No Symptoms - Patient Data Vitals - Most Recent: Last Vital Signs Temp 36.3 C 06/26/17 04:00 Pulse 93 06/26/17 04:00 Resp 16 06/26/17 04:00 BP 114/59 L 06/26/17 04:00 Pulse Ox 95 06/26/17 04:00 Weight - Most Recent: 77.111 kg I&O - Last 24 Hours: Intake & Output 06/25/17 06/26/17 06/26/17 22:59 06:59 14:59 Intake Total 850 300 Output Total 400 1300 Balance 450 -1000 Lab Results Last 24 Hrs: Laboratory Results - last 24 hr 06/26/17 Range/Units 07:11 Hgb 11.3 L (12.0-16.0) g/dL Hct 35.8 L (36.0-46.0) % Med Orders - Current: Current Medications Acetaminophen (Tylenol Extra Strength) 1,000 mg PO Q6H [facility] Last Admin: 06/26/17 01:52 Dose: 1,000 mg Al Hydroxide/Mg Hydroxide (Mag-Al Plus) 30 ml PO Q4H PRN PRN Reason: indigestion Bisacodyl (Dulcolax) 10 mg RECTAL DAILY PRN PRN Reason: Constipation Celecoxib (Celebrex) 200 mg PO DAILY [facility] Last Admin: 06/25/17 09:19 Dose: 200 mg Diphenhydramine HCl (Benadryl) 25 - 50 mg PO Q6H PRN PRN Reason: Itching Docusate Sodium (Colace) 100 mg PO BID [facility] Last Admin: 06/25/17 20:05 Dose: 100 mg Morphine Sulfate (Morphine) 1 - 3 mg IVPUSH Q3H PRN PRN Reason: Pain Ondansetron HCl (Zofran) 4 mg IV Q6HR PRN PRN Reason: NAUSEA/VOMITING Last Admin: 06/25/17 07:52 Dose: 4 mg Oxycodone HCl (Oxycodone) 5 - 10 mg PO Q4H PRN PRN Reason: Pain Last Admin: 06/26/17 03:44 Dose: 5 mg Oxycodone HCl (Oxycontin) 20 mg PO Q12HR [facility] Last Admin: 06/25/17 20:05 Dose: 20 mg Rivaroxaban (Xarelto) 10 mg PO DAILY [facility] Last Admin: 06/25/17 09:19 Dose: 10 mg Scopolamine (Transderm-Scop) 1.5 mg TRDERM ONARRIVE [facility] Last Admin: 06/24/17 08:06 Dose: 1.5 mg Sodium Chloride (Saline Flush) 10 ml FLUSH ASDIRECTED PRN PRN Reason: Keep Vein Open Sodium Chloride (Saline Flush) 2.5 ml FLUSH ASDIRECTED PRN PRN Reason: Keep Vein Open Venlafaxine HCl (Effexor Xr) 150 mg PO DAILY [facility] Last Admin: 06/25/17 09:18 Dose: 150 mg Discontinued Medications Aspirin (Aspirin) 325 mg PO BID [facility] Ephedrine Sulfate (Ephedrine Sulfate) Confirm Administered Dose 100 mg .ROUTE .STK-MED ONE Stop: 06/24/17 07:35 Famotidine (Pepcid) 40 mg IVPUSH ONARRIVE [facility] Stop: 06/24/17 15:00 Last Admin: 06/24/17 08:07 Dose: 40 mg Fentanyl (Sublimaze) Confirm Administered Dose 200 mcg .ROUTE .STK-MED ONE Stop: 06/24/17 07:34 Fentanyl (Sublimaze) 50 mcg IVPUSH Q5M PRN PRN Reason: Pain (severe 7-10) Stop: 06/25/17 09:50 Fentanyl (Sublimaze) Confirm Administered Dose 100 mcg .ROUTE .STK-MED ONE Stop: 06/24/17 10:36 Hydromorphone HCl (Dilaudid) 0 mg IVPUSH ONETIME ONE Stop: 06/24/17 09:51 Last Admin: 06/24/17 19:28 Dose: Not Given Cefazolin Sodium/Dextrose 1 gm (/ Premix) 50 mls @ 100 mls/hr IV ONCALL [facility] Stop: 06/24/17 15:00 Ropivacaine 49.25 ml/Ketorolac Tromethamine 30 mg/Epinephrine HCl 0.5 mg/ Clonidine HCl 80 mcg/ Sodium Chloride 100 mls @ 50 mls/min INJECT ONETIME ONE Stop: 06/24/17 06:01 Last Admin: 06/24/17 19:29 Dose: Not Given Lactated Ringer's (Ringers, Lactated) 1,000 mls @ 100 mls/hr IV ASDIRECTED [facility] Last Admin: 06/24/17 20:35 Dose: 100 mls/hr Acetaminophen 1,000 mg/ Premix 100 mls @ 400 mls/hr IV ONCALL [facility] Stop: 06/24/17 15:00 Last Admin: 06/24/17 08:12 Dose: 400 mls/hr Cefazolin Sodium/Dextrose (Ancef) Confirm Administered Dose 50 mls @ as directed .ROUTE .STK-MED ONE Stop: 06/24/17 07:33 Ropivacaine 49.25 ml/Ketorolac Tromethamine 30 mg/Epinephrine HCl 0.5 mg/ Clonidine HCl 80 mcg/ Sodium Chloride 100 mls @ 50 mls/min INJECT ONETIME ONE Stop: 06/24/17 06:01 Last Admin: 06/24/17 19:29 Dose: Not Given Acetaminophen 1,000 mg/ Premix 100 mls @ 400 mls/hr IV Q6H [facility] Stop: 06/24/17 20:14 Last Admin: 06/24/17 20:47 Dose: 400 mls/hr Cefazolin Sodium/Dextrose 1 gm (/ Premix) 50 mls @ 100 mls/hr IV Q8H [facility] Stop: 06/25/17 00:29 Last Admin: 06/25/17 00:29 Dose: 100 mls/hr Ketorolac Tromethamine (Toradol) 30 mg IVPUSH ONARRIVE [facility] Stop: 06/24/17 15:00 Last Admin: 06/24/17 08:07 Dose: 30 mg Ketorolac Tromethamine (Toradol) 30 mg IVPUSH ONARRIVE [facility] Ketorolac Tromethamine (Toradol) 30 mg IVPUSH Q6H [facility] Stop: 06/25/17 02:01 Last Admin: 06/25/17 02:00 Dose: 30 mg Lidocaine (Xylocaine-Mpf 2%) Confirm Administered Dose 10 ml .ROUTE .STK-MED ONE Stop: 06/24/17 07:34 Midazolam HCl (Versed 1 Mg/Ml) Confirm Administered Dose 2 mg .ROUTE .STK-MED ONE Stop: 06/24/17 07:35 Ondansetron HCl (Zofran) Confirm Administered Dose 4 mg .ROUTE .STK-MED ONE Stop: 06/24/17 07:35 Oxycodone HCl (Oxycontin) 20 mg PO ONARRIVE [facility] Stop: 06/24/17 15:00 Last Admin: 06/24/17 08:06 Dose: 20 mg Propofol (Diprivan 20 Ml) Confirm Administered Dose 400 mg .ROUTE .STK-MED ONE Stop: 06/24/17 07:34 Propofol (Diprivan 20 Ml) Confirm Administered Dose 200 mg .ROUTE .STK-MED ONE Stop: 06/24/17 08:58 Propofol (Diprivan 20 Ml) Confirm Administered Dose 200 mg .ROUTE .STK-MED ONE Stop: 06/24/17 09:25 Propofol (Diprivan 20 Ml) Confirm Administered Dose 200 mg .ROUTE .STK-MED ONE Stop: 06/24/17 10:15 Propofol (Diprivan 20 Ml) Confirm Administered Dose 200 mg .ROUTE .STK-MED ONE Stop: 06/24/17 10:19 Propofol (Diprivan 20 Ml) Confirm Administered Dose 200 mg .ROUTE .STK-MED ONE Stop: 06/24/17 10:39 Tranexamic Acid (Cyklokapron) 4,000 mg IV SEECOMMENT [facility] Stop: 06/24/17 15:00 Tranexamic Acid (Cyklokapron) Confirm Administered Dose 6,000 mg .ROUTE .STK- MED ONE Stop: 06/24/17 07:18 - Exam Wound/Incisions: Dressing Dry and Intact (Dressing changed today.) General: Alert, Oriented HEENT: Pupils Equal, Pupils Reactive Neck: Trachea Midline Lungs: Normal Respiratory Effort Cardiovascular: Regular Rate Extremities: Other (R and L anterior tibialis, extensor hallucis longus and gastrocnemius strength +5/5 bilaterally. Sensation intact. Dorsalis pedis and posterior tibial pulses +2 bilaterally.) Neurological: No New Focal Deficit Psy/Mental Status: Alert, Normal Affect, Normal Mood - Problem List Review Problem List Initiated/Reviewed/Updated: Yes - My Orders Last 24 Hours: Active Orders 24 hr Category Date Time Status Urinary Catheter Removal [RC] Per Unit Routine Care 06/25/17 08:28 Active HEMOGLOBIN/HEMATOCRIT,HH [HEME] DAILY Lab 06/27/17 07:00 Ordered Celecoxib [CeleBREX] Med 06/25/17 09:00 Active 200 mg PO DAILY Rivaroxaban [Xarelto] Med 06/25/17 09:00 Active 10 mg PO DAILY Sodium Chloride 0.9% [Saline Flush] Med 06/25/17 08:28 Active 10 ml FLUSH ASDIRECTED PRN Sodium Chloride 0.9% [Saline Flush] Med 06/25/17 08:28 Active 2.5 ml FLUSH ASDIRECTED PRN Convert IV to Saline Lock [OM.PC] Routine Oth 06/25/17 08:28 Ordered Medication Orders Acetaminophen (Tylenol Extra Strength) 1,000 mg PO Q6H [facility] Last Admin: 06/26/17 01:52 Dose: 1,000 mg Admin: 06/25/17 20:05 Dose: 1,000 mg Admin: 06/25/17 13:02 Dose: 1,000 mg Admin: 06/25/17 07:53 Dose: 1,000 mg Admin: 06/25/17 01:59 Dose: 1,000 mg Al Hydroxide/Mg Hydroxide (Mag-Al Plus) 30 ml PO Q4H PRN PRN Reason: indigestion Bisacodyl (Dulcolax) 10 mg RECTAL DAILY PRN PRN Reason: Constipation Celecoxib (Celebrex) 200 mg PO DAILY [facility] Last Admin: 06/25/17 09:19 Dose: 200 mg Diphenhydramine HCl (Benadryl) 25 - 50 mg PO Q6H PRN PRN Reason: Itching Docusate Sodium (Colace) 100 mg PO BID [facility] Last Admin: 06/25/17 20:05 Dose: 100 mg Admin: 06/25/17 09:18 Dose: 100 mg Admin: 06/24/17 20:39 Dose: 100 mg Morphine Sulfate (Morphine) 1 - 3 mg IVPUSH Q3H PRN PRN Reason: Pain Ondansetron HCl (Zofran) 4 mg IV Q6HR PRN PRN Reason: NAUSEA/VOMITING Last Admin: 06/25/17 07:52 Dose: 4 mg Oxycodone HCl (Oxycodone) 5 - 10 mg PO Q4H PRN PRN Reason: Pain Last Admin: 06/26/17 03:44 Dose: 5 mg Admin: 06/25/17 21:32 Dose: 10 mg Admin: 06/25/17 17:17 Dose: 5 mg Admin: 06/25/17 14:59 Dose: 5 mg Admin: 06/25/17 10:51 Dose: 10 mg Admin: 06/25/17 05:47 Dose: 5 mg Admin: 06/25/17 00:28 Dose: 5 mg Admin: 06/24/17 19:08 Dose: 5 mg Admin: 06/24/17 12:27 Dose: 10 mg Oxycodone HCl (Oxycontin) 20 mg PO Q12HR [facility] Last Admin: 06/25/17 20:05 Dose: 20 mg Admin: 06/25/17 09:19 Dose: 20 mg Admin: 06/24/17 20:39 Dose: 20 mg Rivaroxaban (Xarelto) 10 mg PO DAILY [facility] Last Admin: 06/25/17 09:19 Dose: 10 mg Scopolamine (Transderm-Scop) 1.5 mg TRDERM ONARRIVE [facility] Last Admin: 06/24/17 08:06 Dose: 1.5 mg Sodium Chloride (Saline Flush) 10 ml FLUSH ASDIRECTED PRN PRN Reason: Keep Vein Open Sodium Chloride (Saline Flush) 2.5 ml FLUSH ASDIRECTED PRN PRN Reason: Keep Vein Open Venlafaxine HCl (Effexor Xr) 150 mg PO DAILY [facility] Last Admin: 06/25/17 09:18 Dose: 150 mg Admin: 06/24/17 17:12 Dose: 150 mg - Assessment Assessment (Free Text/Narrative):: Patient awake in bed this AM. Tolerating diet. Pain well controlled. VSS. Hgb 11.3. UO 1700mL. - Plan Plan (Free Text/Narrative):: Continue PT. Continue PO pain management. Encourage PO fluid intake. Discharge home tomorrow.
--- NOTE | 2017-06-26 15:48 | PCM.SN ---
- Free Text/Narrative Note: Patient seen and examined. Currently in bed. Has been up with PT today and did do some walking. Still slow getting out of bed. Pain controlled with po meds. No other complaints. VSS, afeb hgb stable Dressing dry intact BLE. NVI. POD#2 1. continue PT and mobilization 2. Xarelto for DVT prophylaxis 3. plan discharge tomorrow am after PT 4. patient agrees with plan
[2017-06-27] MEDS: Acetaminophen 500 MG Tab PO SCH ×2 (02:03→07:47)
[2017-06-27] MEDS: Venlafaxine 75 MG Cap.ER PO SCH (07:59)
[2017-06-27] MEDS: Celecoxib 100 MG Cap PO SCH (07:59)
[2017-06-27] MEDS: Docusate Sodium 100 MG Cap PO SCH (08:00)
[2017-06-27] MEDS: oxyCODONE ER 20 MG TAB.ER PO SCH (08:00)
[2017-06-27] MEDS: Rivaroxaban 10 MG Tab PO SCH (08:00)
--- NOTE | 2017-06-27 08:49 | PCM.SURGPN ---
- General Info Date of Service: 06/27/17 Date of Surgery/Procedure: 06/24/17 POD#: 3 Functional Status: Reports: Pain Controlled, Tolerating Diet, Ambulating, Urinating - Review of Systems General: Reports: No Symptoms Pulmonary: Reports: No Symptoms Cardiovascular: Reports: No Symptoms Gastrointestinal: Reports: No Symptoms Genitourinary: Reports: No Symptoms Musculoskeletal: Reports: Leg Pain, Joint Pain, Joint Swelling Neurological: Reports: No Symptoms Psychiatric: Reports: No Symptoms - Patient Data Vitals - Most Recent: Last Vital Signs Temp 36.8 C 06/27/17 07:42 Pulse 119 H 06/27/17 07:42 Resp 16 06/27/17 07:42 BP 122/78 06/27/17 07:42 Pulse Ox 95 06/27/17 07:42 Weight - Most Recent: 77.111 kg I&O - Last 24 Hours: Intake & Output 06/26/17 06/27/17 06/27/17 22:59 06:59 14:59 Intake Total 1050 800 Output Total 1400 800 Balance -350 0 Lab Results Last 24 Hrs: Laboratory Results - last 24 hr 06/27/17 Range/Units 07:02 Hgb 11.7 L (12.0-16.0) g/dL Hct 36.4 (36.0-46.0) % Med Orders - Current: Current Medications Acetaminophen (Tylenol Extra Strength) 1,000 mg PO Q6H [facility] Last Admin: 06/27/17 07:47 Dose: 1,000 mg Al Hydroxide/Mg Hydroxide (Mag-Al Plus) 30 ml PO Q4H PRN PRN Reason: indigestion Bisacodyl (Dulcolax) 10 mg RECTAL DAILY PRN PRN Reason: Constipation Celecoxib (Celebrex) 200 mg PO DAILY [facility] Last Admin: 06/27/17 07:59 Dose: 200 mg Diphenhydramine HCl (Benadryl) 25 - 50 mg PO Q6H PRN PRN Reason: Itching Docusate Sodium (Colace) 100 mg PO BID [facility] Last Admin: 06/27/17 08:00 Dose: 100 mg Morphine Sulfate (Morphine) 1 - 3 mg IVPUSH Q3H PRN PRN Reason: Pain Ondansetron HCl (Zofran) 4 mg IV Q6HR PRN PRN Reason: NAUSEA/VOMITING Last Admin: 06/25/17 07:52 Dose: 4 mg Oxycodone HCl (Oxycodone) 5 - 10 mg PO Q4H PRN PRN Reason: Pain Last Admin: 06/26/17 16:03 Dose: 10 mg Oxycodone HCl (Oxycontin) 20 mg PO Q12HR [facility] Last Admin: 06/27/17 08:00 Dose: 20 mg Rivaroxaban (Xarelto) 10 mg PO DAILY [facility] Last Admin: 06/27/17 08:00 Dose: 10 mg Scopolamine (Transderm-Scop) 1.5 mg TRDERM ONARRIVE [facility] Last Admin: 06/24/17 08:06 Dose: 1.5 mg Sodium Chloride (Saline Flush) 10 ml FLUSH ASDIRECTED PRN PRN Reason: Keep Vein Open Sodium Chloride (Saline Flush) 2.5 ml FLUSH ASDIRECTED PRN PRN Reason: Keep Vein Open Venlafaxine HCl (Effexor Xr) 150 mg PO DAILY [facility] Last Admin: 06/27/17 07:59 Dose: 150 mg Discontinued Medications Aspirin (Aspirin) 325 mg PO BID [facility] Ephedrine Sulfate (Ephedrine Sulfate) Confirm Administered Dose 100 mg .ROUTE .STK-MED ONE Stop: 06/24/17 07:35 Famotidine (Pepcid) 40 mg IVPUSH ONARRIVE [facility] Stop: 06/24/17 15:00 Last Admin: 06/24/17 08:07 Dose: 40 mg Fentanyl (Sublimaze) Confirm Administered Dose 200 mcg .ROUTE .STK-MED ONE Stop: 06/24/17 07:34 Fentanyl (Sublimaze) 50 mcg IVPUSH Q5M PRN PRN Reason: Pain (severe 7-10) Stop: 06/25/17 09:50 Fentanyl (Sublimaze) Confirm Administered Dose 100 mcg .ROUTE .STK-MED ONE Stop: 06/24/17 10:36 Hydromorphone HCl (Dilaudid) 0 mg IVPUSH ONETIME ONE Stop: 06/24/17 09:51 Last Admin: 06/24/17 19:28 Dose: Not Given Cefazolin Sodium/Dextrose 1 gm (/ Premix) 50 mls @ 100 mls/hr IV ONCALL [facility] Stop: 06/24/17 15:00 Ropivacaine 49.25 ml/Ketorolac Tromethamine 30 mg/Epinephrine HCl 0.5 mg/ Clonidine HCl 80 mcg/ Sodium Chloride 100 mls @ 50 mls/min INJECT ONETIME ONE Stop: 06/24/17 06:01 Last Admin: 06/24/17 19:29 Dose: Not Given Lactated Ringer's (Ringers, Lactated) 1,000 mls @ 100 mls/hr IV ASDIRECTED [facility] Last Admin: 06/24/17 20:35 Dose: 100 mls/hr Acetaminophen 1,000 mg/ Premix 100 mls @ 400 mls/hr IV ONCALL [facility] Stop: 06/24/17 15:00 Last Admin: 06/24/17 08:12 Dose: 400 mls/hr Cefazolin Sodium/Dextrose (Ancef) Confirm Administered Dose 50 mls @ as directed .ROUTE .STK-MED ONE Stop: 06/24/17 07:33 Ropivacaine 49.25 ml/Ketorolac Tromethamine 30 mg/Epinephrine HCl 0.5 mg/ Clonidine HCl 80 mcg/ Sodium Chloride 100 mls @ 50 mls/min INJECT ONETIME ONE Stop: 06/24/17 06:01 Last Admin: 06/24/17 19:29 Dose: Not Given Acetaminophen 1,000 mg/ Premix 100 mls @ 400 mls/hr IV Q6H [facility] Stop: 06/24/17 20:14 Last Admin: 06/24/17 20:47 Dose: 400 mls/hr Cefazolin Sodium/Dextrose 1 gm (/ Premix) 50 mls @ 100 mls/hr IV Q8H [facility] Stop: 06/25/17 00:29 Last Admin: 06/25/17 00:29 Dose: 100 mls/hr Ketorolac Tromethamine (Toradol) 30 mg IVPUSH ONARRIVE [facility] Stop: 06/24/17 15:00 Last Admin: 06/24/17 08:07 Dose: 30 mg Ketorolac Tromethamine (Toradol) 30 mg IVPUSH ONARRIVE [facility] Ketorolac Tromethamine (Toradol) 30 mg IVPUSH Q6H [facility] Stop: 06/25/17 02:01 Last Admin: 06/25/17 02:00 Dose: 30 mg Lidocaine (Xylocaine-Mpf 2%) Confirm Administered Dose 10 ml .ROUTE .STK-MED ONE Stop: 06/24/17 07:34 Midazolam HCl (Versed 1 Mg/Ml) Confirm Administered Dose 2 mg .ROUTE .STK-MED ONE Stop: 06/24/17 07:35 Ondansetron HCl (Zofran) Confirm Administered Dose 4 mg .ROUTE .STK-MED ONE Stop: 06/24/17 07:35 Oxycodone HCl (Oxycontin) 20 mg PO ONARRIVE [facility] Stop: 06/24/17 15:00 Last Admin: 06/24/17 08:06 Dose: 20 mg Propofol (Diprivan 20 Ml) Confirm Administered Dose 400 mg .ROUTE .STK-MED ONE Stop: 06/24/17 07:34 Propofol (Diprivan 20 Ml) Confirm Administered Dose 200 mg .ROUTE .STK-MED ONE Stop: 06/24/17 08:58 Propofol (Diprivan 20 Ml) Confirm Administered Dose 200 mg .ROUTE .STK-MED ONE Stop: 06/24/17 09:25 Propofol (Diprivan 20 Ml) Confirm Administered Dose 200 mg .ROUTE .STK-MED ONE Stop: 06/24/17 10:15 Propofol (Diprivan 20 Ml) Confirm Administered Dose 200 mg .ROUTE .STK-MED ONE Stop: 06/24/17 10:19 Propofol (Diprivan 20 Ml) Confirm Administered Dose 200 mg .ROUTE .STK-MED ONE Stop: 06/24/17 10:39 Tranexamic Acid (Cyklokapron) 4,000 mg IV SEECOMMENT [facility] Stop: 06/24/17 15:00 Tranexamic Acid (Cyklokapron) Confirm Administered Dose 6,000 mg .ROUTE .STK- MED ONE Stop: 06/24/17 07:18 - Exam Wound/Incisions: Dressing Dry and Intact General: Alert, Oriented HEENT: Pupils Equal, Pupils Reactive Neck: Trachea Midline Lungs: Normal Respiratory Effort Cardiovascular: Regular Rate Extremities: Other (R and L anterior tibialis, extensor hallucis longus and gastrocnemius strength +5/5 bilaterally. Sensation intact. Dorsalis pedis and posterior tibial pulses +2 bilaterally.) Neurological: No New Focal Deficit Psy/Mental Status: Alert, Normal Affect, Normal Mood - Problem List Review Problem List Initiated/Reviewed/Updated: Yes - My Orders Last 24 Hours: Medication Orders Acetaminophen (Tylenol Extra Strength) 1,000 mg PO Q6H [facility] Last Admin: 06/27/17 07:47 Dose: 1,000 mg Admin: 06/27/17 02:03 Dose: 1,000 mg Admin: 06/26/17 20:08 Dose: 1,000 mg Admin: 06/26/17 13:27 Dose: 1,000 mg Admin: 06/26/17 08:03 Dose: 1,000 mg Admin: 06/26/17 01:52 Dose: 1,000 mg Admin: 06/25/17 20:05 Dose: 1,000 mg Admin: 06/25/17 13:02 Dose: 1,000 mg Admin: 06/25/17 07:53 Dose: 1,000 mg Admin: 06/25/17 01:59 Dose: 1,000 mg Al Hydroxide/Mg Hydroxide (Mag-Al Plus) 30 ml PO Q4H PRN PRN Reason: indigestion Bisacodyl (Dulcolax) 10 mg RECTAL DAILY PRN PRN Reason: Constipation Celecoxib (Celebrex) 200 mg PO DAILY [facility] Last Admin: 06/27/17 07:59 Dose: 200 mg Admin: 06/26/17 08:03 Dose: 200 mg Admin: 06/25/17 09:19 Dose: 200 mg Diphenhydramine HCl (Benadryl) 25 - 50 mg PO Q6H PRN PRN Reason: Itching Docusate Sodium (Colace) 100 mg PO BID [facility] Last Admin: 06/27/17 08:00 Dose: 100 mg Admin: 06/26/17 20:08 Dose: 100 mg Admin: 06/26/17 08:03 Dose: 100 mg Admin: 06/25/17 20:05 Dose: 100 mg Admin: 06/25/17 09:18 Dose: 100 mg Admin: 06/24/17 20:39 Dose: 100 mg Morphine Sulfate (Morphine) 1 - 3 mg IVPUSH Q3H PRN PRN Reason: Pain Ondansetron HCl (Zofran) 4 mg IV Q6HR PRN PRN Reason: NAUSEA/VOMITING Last Admin: 06/25/17 07:52 Dose: 4 mg Oxycodone HCl (Oxycodone) 5 - 10 mg PO Q4H PRN PRN Reason: Pain Last Admin: 06/26/17 16:03 Dose: 10 mg Admin: 06/26/17 11:22 Dose: 10 mg Admin: 06/26/17 03:44 Dose: 5 mg Admin: 06/25/17 21:32 Dose: 10 mg Admin: 06/25/17 17:17 Dose: 5 mg Admin: 06/25/17 14:59 Dose: 5 mg Admin: 06/25/17 10:51 Dose: 10 mg Admin: 06/25/17 05:47 Dose: 5 mg Admin: 06/25/17 00:28 Dose: 5 mg Admin: 06/24/17 19:08 Dose: 5 mg Admin: 06/24/17 12:27 Dose: 10 mg Oxycodone HCl (Oxycontin) 20 mg PO Q12HR [facility] Last Admin: 06/27/17 08:00 Dose: 20 mg Admin: 06/26/17 20:08 Dose: 20 mg Admin: 06/26/17 08:04 Dose: 20 mg Admin: 06/25/17 20:05 Dose: 20 mg Admin: 06/25/17 09:19 Dose: 20 mg Admin: 06/24/17 20:39 Dose: 20 mg Rivaroxaban (Xarelto) 10 mg PO DAILY [facility] Last Admin: 06/27/17 08:00 Dose: 10 mg Admin: 06/26/17 08:03 Dose: 10 mg Admin: 06/25/17 09:19 Dose: 10 mg Scopolamine (Transderm-Scop) 1.5 mg TRDERM ONARRIVE [facility] Last Admin: 06/24/17 08:06 Dose: 1.5 mg Sodium Chloride (Saline Flush) 10 ml FLUSH ASDIRECTED PRN PRN Reason: Keep Vein Open Sodium Chloride (Saline Flush) 2.5 ml FLUSH ASDIRECTED PRN PRN Reason: Keep Vein Open Venlafaxine HCl (Effexor Xr) 150 mg PO DAILY [facility] Last Admin: 06/27/17 07:59 Dose: 150 mg Admin: 06/26/17 08:03 Dose: 150 mg Admin: 06/25/17 09:18 Dose: 150 mg Admin: 06/24/17 17:12 Dose: 150 mg - Assessment Assessment (Free Text/Narrative):: Patient awake in bed this AM. Pain well controlled. Tolerating diet. VSS. Hgb 11.7. UO 2200 mL. - Plan Plan (Free Text/Narrative):: Continue PT. Continue pain management. Encourage PO fluid intake. Discharge home this afternoon.
--- NOTE | 2017-06-27 15:06 | PCM.SN ---
- Free Text/Narrative Note: Discharge summary Dressings changed prior to discharge. See discharge plan for complete list of discharge medications and instructions. Dictation#: [id number]
--- NOTE | 2017-06-28 15:21 | DISCH ---
DATE OF DISCHARGE: 06/27/2017 PRIMARY CARE PHYSICIAN: Mary Brar PCP ADMISSION DIAGNOSIS: Degenerative joint disease, bilateral knees, tricompartmental. OTHER MEDICAL DIAGNOSES: Blood clotting disorder. DISCHARGE DIAGNOSES: 1. Status post bilateral total knee arthroplasty. 2. Blood clotting disorder. BRIEF HISTORY: Suly is a 51-year-old female who has a complaint of progressive bilateral knee pain. She has failed conservative treatment. Due to her lack of response to conservative treatment, surgical intervention was recommended at that time. Operation was bilateral total knee arthroplasty. HOSPITAL COURSE: Pain was controlled with a combination of IV and p.o. pain medications. The patient did receive two doses of Ancef postoperatively for 24 hours of antibiotic coverage. She was followed by Physical Therapy during her hospital stay. Upon discharge, the patient's vital signs were stable and she was afebrile. Hemoglobin on the day of discharge was 11.7. Xarelto 10 mg daily was started on postoperative day #1 for DVT prophylaxis. Pain is currently controlled with oral pain medications only. She is tolerating oral intake and ambulating with wheeled walker. She feels comfortable with discharge to home today. DISCHARGE MEDICATIONS: 1. Oxycodone 5 mg. 2. OxyContin 20 mg. 3. Celebrex 200 mg. 4. Colace 100 mg. 5. Tylenol 500 mg. 6. Xarelto 10 mg. DISCHARGE INSTRUCTIONS: 1. The patient will follow up in the clinic on July 04, 2017. This appointment has been made for the patient. 2. Outpatient physical therapy 2 to 3 times per week for 4 to 6 weeks. 3. Polar Care to bilateral knees. 4. JUDSON hose to bilateral lower extremities, on in the morning and off in the evening. For complete medication reconciliation and discharge instructions, please refer to the patient's EHR. If the patient has questions or concerns prior to followup, she may call the clinic. DICTATED BY: Jazz Hand PA-C dictating for Dr. Binta Gerardo. KATHI / SHEILA /[id number]
== END 2017-06-27 11:15 | disposition home or self-care (01) | DRG 302 ==
LOC: MW.MS 07:12
PROVIDERS: ADMIT Orthopaedic Surgery; ATTEND Orthopaedic Surgery
PROC: 0SRD0J9 Replacement of Left Knee Joint with Synthetic Substitute, Cemented, Open Approach (ICD-10-PCS; principal; 2017-06-24)
PROC: 0SRC0J9 Replacement of Right Knee Joint with Synthetic Substitute, Cemented, Open Approach (ICD-10-PCS; 2017-06-24)
DX: M17.0 Bilateral primary osteoarthritis of knee (principal); M25.761 Osteophyte, right knee
CPT/HCPCS: 01402; 36415; 735602650; 73560-50; 85014; 85018; 86850; 86900; 86901; 88304; 88311; 97110-GP; 97161-GP; 97530-GP; A9270-GY; C1713; C1776; J0171; J0690; J0735; J1885; J2250; J2405; J2704; J2795; J3010; J7050; J7120

== ENCOUNTER 2017-09-16 07:01 | Day surgery (SDC) | payer BC ==
[2017-09-16] MEDS ORDERED: Ondansetron 4 MG/2 ML SDV ONE (07:15)
[2017-09-16] MEDS ORDERED: Succinylcholine/Normal Saline 200 MG/10 ML Syringe ONE (07:15)
[2017-09-16] MEDS ORDERED: Propofol 200 MG/20 ML SDV ONE (07:15)
[2017-09-16] MEDS ORDERED: Lidocaine 2% 5 ML SDV ONE (07:15)
[2017-09-16] MEDS ORDERED: fentaNYL 100 MCG/2 ML SDV ONE (07:15)
[2017-09-16] MEDS ORDERED: Rocuronium 10 MG/ML 10 ML Syringe ONE (07:15)
[2017-09-16] MEDS ORDERED: Midazolam 1 MG/ML 2 ML SDV ONE (07:16)
--- NOTE | 2017-09-16 07:33 | PCM.PREANE ---
Preanesthetic Assessment - Anesthesia/Transfusion/Family Hx Anesthesia History: Prior Anesthesia Without Reaction Family History of Anesthesia Reaction: No Transfusion History: No Prior Transfusion(s) - Review of Systems General: No Symptoms Pulmonary: No Symptoms Cardiovascular: No Symptoms Gastrointestinal: No Symptoms Neurological: No Symptoms Other: Reports: None - Physical Assessment NPO Status Date: 09/15/17 Height: 1.68 m Weight: 74.843 kg ASA Class: 2 Mental Status: Alert & Oriented x3 Airway Class: Mallampati = 1 Dentition: Reports: Normal Dentition ROM/Head Extension: Full Lungs: Clear to Auscultation, Normal Respiratory Effort Cardiovascular: Regular Rate, Regular Rhythm - Allergies Allergies/Adverse Reactions: Allergies Allergy/AdvReac Type Severity Reaction Status Date / Time No Known Allergies Allergy Verified 09/11/17 08:12 - Anesthesia Plan Pre-Op Medication Ordered: None - Acknowledgements Anesthesia Type Planned: General Anesthesia Pt an Appropriate Candidate for the Planned Anesthesia: Yes Alternatives and Risks of Anesthesia Discussed w Pt/Guardian: Yes Pt/Guardian Understands and Agrees with Anesthesia Plan: Yes PreAnesthesia Questionnaire HEENT History: Reports: Other (See Below) Other HEENT History: wears glasses Cardiovascular History: Reports: Other (See Below) Other Cardiovascular History: hx en PE Respiratory History: Reports: PE Other Respiratory History: en PE following breast lumpectomy Gastrointestinal History: Reports: None Genitourinary History: Reports: None 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: Musculoskeletal History: Reports: Arthritis, Fracture Other Musculoskeletal History: hx fx arm as a child Neurological History: Reports: None Psychiatric History: Reports: Depression Hematologic History: Reports: None Immunologic History: Reports: None Oncologic (Cancer) History: Reports: Breast Dermatologic History: Reports: None - Past Surgical History Head Surgeries/Procedures: Reports: None GI Surgical History: Reports: Cholecystectomy Female Surgical History: Reports: Breast Biopsy, Section, Hysterectomy, Mastectomy Other Female Surgeries/Procedures: en mastectomy, c/section x3 Musculoskeletal Surgical History: Reports: Knee Replacement Other Musculoskeletal Surgeries/Procedures:: hx en knee replacement - SUBSTANCE USE Smoking Status *Q: Never Smoker Recreational Drug Use History: No - HOME MEDS Home Medications: Home Meds Venlafaxine [Effexor XR] 150 mg PO DAILY 06/19/17 [History] Acetaminophen [Tylenol Extra Strength] 1 - 2 tab PO ASDIRECTED PRN 09/11/17 [ History] Meloxicam 15 mg PO DAILY 09/11/17 [History] - CURRENT (IN HOUSE) MEDS Current Meds: Current Medications Hydrocodone Bitart/Acetaminophen ([place] 325-5 Mg) 1 - 2 tab PO Q4H PRN PRN Reason: Pain Discontinued Medications Fentanyl (Sublimaze) Confirm Administered Dose 200 mcg .ROUTE .STK-MED ONE Stop: 09/16/17 07:16 Lidocaine (Xylocaine-Mpf 2%) Confirm Administered Dose 5 ml .ROUTE .STK-MED ONE Stop: 09/16/17 07:16 Midazolam HCl (Versed 1 Mg/Ml) Confirm Administered Dose 2 mg .ROUTE .STK-MED ONE Stop: 09/16/17 07:17 Ondansetron HCl (Zofran) Confirm Administered Dose 4 mg .ROUTE .STK-MED ONE Stop: 09/16/17 07:16 Propofol (Diprivan 20 Ml) Confirm Administered Dose 200 mg .ROUTE .STK-MED ONE Stop: 09/16/17 07:16 Rocuronium [place] (Zemuron) Confirm Administered Dose 100 mg .ROUTE .STK-MED ONE Stop: 09/16/17 07:16 Succinylcholine Chloride (Succinylcholine In Ns Pf) Confirm Administered Dose 200 mg .ROUTE .STK-MED ONE Stop: 09/16/17 07:16
[2017-09-16] MEDS ORDERED: Acetaminophen/HYDROcodone 325-5 MG Tab PO PRN (08:00)
[2017-09-16] MEDS ORDERED: Lactated Ringers 1,000 ML IV SCH (08:00)
--- NOTE | 2017-09-16 08:52 | PCM.OPNOTE ---
- General Post-Op/Procedure Note Date of Surgery/Procedure: 09/16/17 Operative Procedure(s): Bilateral TKA manipulation Post-Op Diagnosis: B knee arthrofibrosis, s/p TKA Anesthesia Technique: General Mask Primary Surgeon: Binta GRUBER in mLs: 0 Condition: Good Free Text/Narrative:: #[id number]
[2017-09-16] MEDS ORDERED: HYDROmorphone 2 MG/ML SDV IVPUSH ONE (10:01)
[2017-09-16] MEDS ORDERED: Ketorolac 30 MG/ML SDV IVPUSH ONE (10:39)
[2017-09-16] MEDS ORDERED: Acetaminophen 1,000 MG in Premix Bag 1 BAG IV ONE (10:41)
--- NOTE | 2017-09-16 13:20 | PCM48HPAN ---
Post Anesthesia Note - EVALUATION WITHIN 48HRS OF ANESTHETIC Vital Signs in Normal Range: Yes Patient Participated in Evaluation: Yes Respiratory Function Stable: Yes Airway Patent: Yes Cardiovascular Function Stable: Yes Hydration Status Stable: Yes Pain Control Satisfactory: Yes Nausea and Vomiting Control Satisfactory: Yes Mental Status Recovered: Yes Resp Rate: 12
--- NOTE | 2017-09-16 13:20 | PCM.POSTAN ---
POST ANESTHESIA ASSESSMENT - MENTAL STATUS Mental Status: Alert, Oriented - RESPIRATORY Respiratory Status: Respiratory Rate WNL, Airway Patent, O2 Saturation Stable - CARDIOVASCULAR CV Status: Pulse Rate WNL, Blood Pressure Stable - GASTROINTESTINAL GI Status: No Symptoms - PAIN Free Text/Narrative:: uncomfortable upon entry to phase 2, given dilaudid, tylenol (iv), and toradol with marked improvement. - POST OP HYDRATION Hydration Status: Adequate & Stable
--- NOTE | 2017-09-16 16:23 | OR ---
SURGEON: Binta Gerardo MD DATE OF PROCEDURE: 09/16/2017 PREOPERATIVE DIAGNOSES: Bilateral knee arthrofibrosis, status post bilateral total knee arthroplasty. POSTOPERATIVE DIAGNOSES: Bilateral knee arthrofibrosis, status post bilateral total knee arthroplasty. PROCEDURE: Bilateral total knee arthroplasty manipulation. FRUIT CUTTER: None. ANESTHESIA: General. ESTIMATED BLOOD LOSS: 0 mL. TOURNIQUET TIME: 0 minutes. COMPLICATIONS: None. DVT PROPHYLAXIS: Not indicated. IMPLANTS USED: None. BRIEF HISTORY: Suly is a 52-year-old female who previously underwent bilateral total knee arthroplasty. She has been compliant with her physical therapy, however, has developed some stiffness with flexion. She continues to have some pain with this as well. Due to her lack of response to conservative treatment, I did recommend surgical intervention. The risks and goals of procedure were discussed with the patient and were documented preoperatively. She agreed to proceed. DESCRIPTION OF PROCEDURE: The patient was properly identified and brought to the operating room. She was kept on the operating room cart. General anesthesia was administered with a paralytic. After adequate anesthesia and relaxation were achieved, a time-out was performed to ensure correct site and procedure. Preoperative antibiotics were not given. The surgical site had not been marked preoperatively due to the bilateral nature of the procedure. We first started with the right knee. Initially, she had approximately 95 degrees of flexion which was documented with photography. Gentle pressure was applied to the lower leg with both the hip and knee flexed. Lysis of adhesions was palpated within the knee joint as the knee continued to be flexed to nearly [address] the gel pad underneath her knee and did apply some downward pressure to attempt to achieve full extension as well. Final motion was 0 to 120 degrees. I then turned my attention to the left knee. A similar procedure was performed with the knee and hip at 90 degrees of flexion. She started with approximately 100 degrees of flexion at the knee. I was able to get her to 120 degrees at the completion of the procedure. This again was documented with photography. Her knees were also examined for stability. She had good varus and valgus stability. It did not appear to have significant anterior translation of the tibia. She was awakened from her anesthetic. She was brought to recovery room in stable condition. TAMEKA / SHEILA /[id number]
== END 2017-09-16 12:00 | disposition home or self-care (01) ==
LOC: MW.SDS 07:01
PROVIDERS: ATTEND Orthopaedic Surgery
DX: M24.661 Ankylosis, right knee (principal); M24.662 Ankylosis, left knee; M17.0 Bilateral primary osteoarthritis of knee; F32.9 Major depressive disorder, single episode, unspecified; Z85.3 Personal history of malignant neoplasm of breast; Z86.711 Personal history of pulmonary embolism; Z79.899 Other long term (current) drug therapy; Z96.653 Presence of artificial knee joint, bilateral
CPT/HCPCS: 27570; A9270; J1170; J1885; J2250; J2405; J3010; J7120; 01380; J2704

== ENCOUNTER 2019-01-12 09:41 | Inpatient (IN) | payer BC ==
[~2019-01-12 09:41] MED LIST changes: +Acetaminophen 1,000 MG in Premix Bag 1 BAG IV SCH; -Ketorolac 30 MG/ML SDV IVPUSH SCH; -Ropivacaine 49.25 ML, Ketorolac 30 MG, EPINEPHrine 0.5 MG, cloNIDine 80 MCG in Sodium C... INJECT ONE; +Ropivacaine 49.25 ML, Ketorolac 30 MG, EPINEPHrine 0.5 MG, cloNIDine 80 MCG in Sodium C... INJECT SCH; -oxyCODONE ER 20 MG TAB.ER PO SCH
--- NOTE | 2019-01-12 10:58 | PCM.PREANE ---
Preanesthetic Assessment - Anesthesia/Transfusion/Family Hx Anesthesia History: Prior Anesthesia Without Reaction Family History of Anesthesia Reaction: No Transfusion History: No Prior Transfusion(s) Intubation History: Unknown - Review of Systems General: No Symptoms Pulmonary: No Symptoms Cardiovascular: No Symptoms Gastrointestinal: No Symptoms Neurological: No Symptoms Other: Reports: None - Physical Assessment O2 Sat by Pulse Oximetry: 99 Respiratory Rate: 16 Vital Signs: Last Vital Signs Temp 36.2 C 01/12/19 10:51 Pulse 88 01/12/19 10:51 Resp 16 01/12/19 10:51 BP 137/84 01/12/19 10:51 Pulse Ox 99 01/12/19 10:51 Height: 5 ft 6 in Weight: 77.111 kg ASA Class: 2 Mental Status: Alert & Oriented x3 Airway Class: Mallampati = 2 Dentition: Reports: Bridge (fixed lower, front) Thyro-Mental Finger Breadths: 3 Mouth Opening Finger Breadths: 3 ROM/Head Extension: Full Lungs: Clear to Auscultation, Normal Respiratory Effort Cardiovascular: Regular Rate, Regular Rhythm - Allergies Allergies/Adverse Reactions: Allergies Allergy/AdvReac Type Severity Reaction Status Date / Time No Known Allergies Allergy Verified 01/07/19 12:41 - Blood Blood Available: No - Anesthesia Plan Pre-Op Medication Ordered: None - Acknowledgements Anesthesia Type Planned: Spinal Pt an Appropriate Candidate for the Planned Anesthesia: Yes Alternatives and Risks of Anesthesia Discussed w Pt/Guardian: Yes Pt/Guardian Understands and Agrees with Anesthesia Plan: Yes PreAnesthesia Questionnaire HEENT History: Reports: Other (See Below) Other HEENT History: wears glasses Cardiovascular History: Reports: Blood Clots/VTE/DVT, Other (See Below) Other Cardiovascular History: hx en PE following breast lumpectomy ', DVT rt leg after knee surgery '17 Respiratory History: Reports: PE Other Respiratory History: en PE following breast lumpectomy Gastrointestinal History: Reports: None Genitourinary History: Reports: None 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: Musculoskeletal History: Reports: Fracture, RA Other Musculoskeletal History: hx fx arm as a child Neurological History: Reports: None Psychiatric History: Reports: Depression Endocrine/Metabolic History: Reports: None Hematologic History: Reports: None Immunologic History: Reports: None Oncologic (Cancer) History: Reports: Breast, Ovarian Dermatologic History: Reports: None - Past Surgical History Head Surgeries/Procedures: Reports: None Cardiovascular Surgical History: Reports: None Respiratory Surgical History: Reports: None GI Surgical History: Reports: Cholecystectomy Female Surgical History: Reports: Breast Biopsy, Section, Hysterectomy, Mastectomy Other Female Surgeries/Procedures: en mastectomy, c/section x3 Endocrine Surgical History: Reports: None Neurological Surgical History: Reports: None Musculoskeletal Surgical History: Reports: Knee Replacement Other Musculoskeletal Surgeries/Procedures:: hx en knee replacement Oncologic Surgical History: Reports: Mastectomy (bilateral) Dermatological Surgical History: Reports: None - SUBSTANCE USE Smoking Status *Q: Never Smoker Recreational Drug Use History: No - HOME MEDS Home Medications: Home Meds Venlafaxine [Effexor XR] 150 mg PO DAILY 06/19/17 [History] Meloxicam 15 mg PO DAILY 09/11/17 [History] - CURRENT (IN HOUSE) MEDS Current Meds: Current Medications Famotidine (Pepcid) 40 mg IVPUSH ONARRIVE DULCE Acetaminophen 1,000 mg/ Premix 100 mls @ 400 mls/hr IV ONARRIVE DULCE Cefazolin Sodium/Dextrose 1 gm (/ Premix) 50 mls @ 100 mls/hr IV ONCALL DULCE Ropivacaine 49.25 ml/Ketorolac Tromethamine 30 mg/Epinephrine HCl 0.5 mg/ Clonidine HCl 80 mcg/ Sodium Chloride 75 mls @ 50 mls/sec INJECT ASDIRECTED DULCE Lactated Ringer's (Ringers, Lactated) 1,000 mls @ 100 mls/hr IV ASDIRECTED DULCE Scopolamine (Transderm-Scop) 1.5 mg TRDERM ONARRIVE DULCE Discontinued Medications Tranexamic Acid (Cyklokapron) Confirm Administered Dose 2,000 mg .ROUTE .STK- MED ONE Stop: 01/12/19 10:39
[2019-01-12] MEDS: Lactated Ringers 1,000 ML IV SCH ×2 (11:12→17:07)
[2019-01-12] MEDS ORDERED: Propofol 200 MG/20 ML SDV ONE ×2 (11:53→13:12)
[2019-01-12] MEDS ORDERED: Ondansetron 4 MG/2 ML SDV ONE (11:53)
[2019-01-12] MEDS ORDERED: Midazolam 1 MG/ML 2 ML SDV ONE (11:53)
[2019-01-12] MEDS ORDERED: fentaNYL 100 MCG/2 ML SDV ONE (11:53)
[2019-01-12] MEDS ORDERED: ceFAZolin 1 GM Vial ONE (11:55)
[2019-01-12] MEDS ORDERED: Sodium Chloride 0.9% 20 ML ONE (11:57)
[2019-01-12] MEDS ORDERED: ePHEDrine 50 MG/ML SDV ONE (12:47)
[2019-01-12] MEDS ORDERED: Ondansetron 4 MG/2 ML SDV IVPUSH PRN (13:42)
[2019-01-12] MEDS ORDERED: Sodium Chloride 0.9% 2.5 ML Syringe FLUSH PRN (13:42)
[2019-01-12] MEDS ORDERED: Docusate Sodium 100 MG Cap PO PRN (13:42)
[2019-01-12] MEDS ORDERED: Aluminum Hydroxide/Magnesium Hydroxide/Simethicone Susp 30 ML Cup PO PRN (13:42)
[2019-01-12] MEDS ORDERED: Bisacodyl 10 MG Supp RECTAL PRN (13:42)
[2019-01-12] MEDS ORDERED: diphenhydrAMINE 25 MG Cap PO PRN (13:42)
[2019-01-12] MEDS ORDERED: Sodium Chloride 0.9% 10 ML Syringe FLUSH PRN (13:42)
--- NOTE | 2019-01-12 14:00 | PCM.OPNOTE ---
- General Post-Op/Procedure Note Date of Surgery/Procedure: 01/12/19 Operative Procedure(s): Revision left TKA with poly exchange Post-Op Diagnosis: Painful L TKA with patella instability Anesthesia Technique: Moderate Sedation, Spinal Primary Surgeon: Binta Gerardo Credit Risk Specialist: Dahiana Rascon in mLs: 20 Condition: Good Free Text/Narrative:: tt= see nursing record #[id number]
[2019-01-12] MEDS ORDERED: Promethazine 25 MG/ML SDV ONE (14:34)
[2019-01-12] MEDS: Acetaminophen/oxyCODONE 325-5 MG Tab PO PRN ×2 (15:51→20:07)
[2019-01-12] MEDS: HYDROmorphone 1 MG/ML Syringe IVPUSH PRN (18:22)
[2019-01-12] MEDS: ceFAZolin 1 GM in Premix Bag 1 BAG IV SCH (20:09)
--- NOTE | 2019-01-12 20:11 | OR ---
SURGEON: Binta Gerardo MD DATE OF PROCEDURE: 01/12/2019 POSTOPERATIVE DIAGNOSES: 1. Painful left total knee arthroplasty. 2. Left knee patella instability. POSTOPERATIVE DIAGNOSES: 1. Painful left total knee arthroplasty. 2. Left knee patella instability. PROCEDURE: Revision left total knee arthroplasty with exchange of polyethylene liner. BANKING PARALEGAL: Dahiana Rascon PA-C. ANESTHESIA: Spinal with sedation. ESTIMATED BLOOD LOSS: 25 mL. TOURNIQUET TIME: See nursing record. COMPLICATIONS: None. DVT PROPHYLAXIS: PAS boot to the nonoperative leg. IMPLANTS USED: Kylie Persona polyethylene liner, size 11. BRIEF HISTORY: Suly is a 53-year-old female who previously underwent bilateral total knee arthroplasty. Her postoperative course was complicated by arthrofibrosis of both knees, and she subsequently underwent bilateral total knee arthroplasty manipulation approximately 1 year ago. She went on to do quite well. Approximately 1-1/2 weeks ago, she noticed increased pain and swelling in the left knee. She cannot recall a specific injury; however, states she had been doing a lot of gardening and was getting ready for her son's wedding. She was evaluated in clinic and found to have lateral displacement of the patella consistent with patellar instability. She had not had any fever or chills. Synovasure studies did show a negative Alpha Defensin and was also negative for infection. At that time, I recommended surgical intervention. The risks and goals of the procedure were discussed with the patient and were documented preoperatively. She agreed to proceed. DESCRIPTION OF PROCEDURE: The patient was properly identified and brought to the operating room. She was transferred from the OR cart and placed on the operating room table in the supine position. Spinal anesthesia was administered. After adequate anesthesia was obtained, the patient was placed in the supine position. A well-padded tourniquet was applied to the left lower extremity. The left lower extremity was then prepped in a standard fashion using ChloraPrep solution. It was then sterilely draped. A time-out was performed to ensure correct site and procedure. Preoperative antibiotics were given. The surgical site had been marked preoperatively. An Esmarch was used to exsanguinate the left lower extremity, and the tourniquet was inflated to 250 mmHg. The knee was then examined. No palpable defect was noted along the quadriceps or patellar tendon. She had flexion to 110 degrees with full extension. She had slight laxity with varus stressing. The site of the previous incision was then incised. The subcutaneous tissues were identified. The patellar retinaculum appeared intact. The patella was sitting in a slightly lateral position and the medial retinaculum tissue appeared quite thinned; however, it did remain intact. A medial parapatellar approach was then made. There was a small amount of joint fluid which was straw-colored. There was no evidence of infection. There was abundant scar tissue in the suprapatellar pouch and this was excised. The medial retinaculum tissue appeared to be robust. There did not appear to be any defect other than the abundance of tissue. The scar tissue around the patella was cleared. The scar tissue from the medial and lateral gutters was also removed. The previous polyethylene was then removed with an osteotome without difficulty. This did show mild wear along the medial aspect of the polyethylene. However, overall it was intact. This was a size 10. The knee was then copiously irrigated with 3 L of normal saline using a Pulsavac deliverer outside. The knee was again inspected. A tibiofemoral distractor was then placed and the posterior capsule was injected with a mixture of clonidine, ropivacaine with epinephrine, and Toradol. With a slight varus instability on exam, I elected to place a size 12 polyethylene. This was placed and locked into position without difficulty. The knee was again taken through a range of motion, and this now showed good stability with both varus and valgus stressing. At this point, the tourniquet was then deflated. The femoral and tibial component position were also inspected. There was a slight external rotation to both components and there did not appear to be malalignment of the components that led to the patellar instability. The patella was then re-centered over the trochlear groove on the component, and the knee was taken through a range of motion. The patella appeared to track centrally with a medial pull along the patella. Since the medial retinacular tissue appeared quite abundant, the medial retinaculum was repaired using #2 FiberWire in a [id number] fashion. Four sutures were placed with the #2 FiberWire and the remainder of the medial retinaculum were closed with #1 Vicryl. The knee was again taken through a range of motion, and the patella appeared to track centrally. There did not appear to be undue tension on the repair up to 90 degrees. The subcutaneous tissues were then closed with 2-0 Vicryl, and the skin was closed with allison. The remainder of the injection was injected along the subcutaneous tissues of the skin. Xeroform gauze was placed over the wound and a bulky dressing was applied. She was placed into a knee immobilizer. She was awakened from her anesthetic and transferred back to the operating room cart. She was brought to recovery room in stable condition. All needle and sponge counts were correct. TAMEKA / SHEILA /[id number]
[2019-01-13] MEDS: Lactated Ringers 1,000 ML IV SCH (03:16)
[2019-01-13] MEDS: ceFAZolin 1 GM in Premix Bag 1 BAG IV SCH (03:16)
[2019-01-13] MEDS: Acetaminophen/oxyCODONE 325-5 MG Tab PO PRN ×2 (03:17→08:05)
[2019-01-13] MEDS: HYDROmorphone 1 MG/ML Syringe IVPUSH PRN (05:47)
--- NOTE | 2019-01-13 08:09 | PCM.SURGPN ---
- General Info Date of Service: 01/13/19 Date of Surgery/Procedure: 01/12/19 POD#: 1 Functional Status: Reports: Pain Controlled, Tolerating Diet, Ambulating, Urinating - Review of Systems General: Reports: No Symptoms Pulmonary: Reports: No Symptoms Cardiovascular: Reports: No Symptoms Gastrointestinal: Reports: Nausea (controlled with medications) Musculoskeletal: Reports: Leg Pain Systems Review Comment:: pt up to chair for breakfast has been OOB to bathroom knee immobilizer in place pain controlled with pain medications available no specific concerns today would like to go home this afternoon - Patient Data Vitals - Most Recent: Last Vital Signs Temp 98 F 01/13/19 03:41 Pulse 74 01/13/19 03:41 Resp 15 01/13/19 03:41 BP 99/54 L 01/13/19 03:41 Pulse Ox 93 L 01/13/19 03:41 Weight - Most Recent: 77.111 kg I&O - Last 24 Hours: Intake & Output 01/12/19 01/13/19 01/13/19 22:59 06:59 14:59 Intake Total 50 2214 Output Total 0 1150 Balance 50 1064 Lab Results Last 24 Hrs: Laboratory Results - last 24 hr 01/12/19 01/13/19 Range/Units 11:04 05:45 Hgb 11.5 L (12.0-16.0) g/dL Hct 36.5 (36.0-46.0) % Blood Type O POSITIVE Antibody Screen NEGATIVE Med Orders - Current: Current Medications Al Hydroxide/Mg Hydroxide (Mag-Al Plus) 30 ml PO Q4H PRN PRN Reason: Indigestion Apixaban (Eliquis) 2.5 mg PO BID [facility] Bisacodyl (Dulcolax) 10 mg RECTAL DAILY PRN PRN Reason: Constipation Celecoxib (Celebrex) 200 mg PO BID DULCE Diphenhydramine HCl (Benadryl) 25 - 50 mg PO Q6H PRN PRN Reason: Itching Docusate Sodium (Colace) 100 mg PO BID PRN PRN Reason: Constipation Famotidine (Pepcid) 40 mg PO DAILY D[facility]CE Hydromorphone HCl (Dilaudid) 0.5 - 1 mg IVPUSH Q3H PRN PRN Reason: Pain Last Admin: 01/13/19 05:47 Dose: 1 mg Lactated Ringer's (Ringers, Lactated) 1,000 mls @ 100 mls/hr IV ASDIRECTED DULCE Last Admin: 01/13/19 03:16 Dose: 100 mls/hr Ondansetron HCl (Zofran) 4 mg IVPUSH Q6H PRN PRN Reason: Nausea/Vomiting Oxycodone/Acetaminophen (Percocet 325-5 Mg) 1 - 2 tab PO Q4H PRN PRN Reason: Pain Last Admin: 01/13/19 03:17 Dose: 2 tab Polyethylene Glycol (Miralax) 17 gm PO DAILY [facility] Scopolamine (Transderm-Scop) 1.5 mg TRDERM ONARRIVE DULCE Last Admin: 01/12/19 11:13 Dose: 1.5 mg Sodium Chloride (Saline Flush) 10 ml FLUSH ASDIRECTED PRN PRN Reason: Keep Vein Open Sodium Chloride (Saline Flush) 2.5 ml FLUSH ASDIRECTED PRN PRN Reason: Keep Vein Open Venlafaxine HCl (Effexor Xr) 150 mg PO DAILY DULCE Discontinued Medications Cefazolin Sodium (Ancef) Confirm Administered Dose 1 gm .ROUTE .STK-MED ONE Stop: 01/12/19 11:56 Ephedrine Sulfate (Ephedrine Sulfate) Confirm Administered Dose 50 mg .ROUTE .STK-MED ONE Stop: 01/12/19 12:48 Famotidine (Pepcid) 40 mg IVPUSH ONARRIVE [facility] Last Admin: 01/12/19 11:14 Dose: 40 mg Fentanyl (Sublimaze) Confirm Administered Dose 100 mcg .ROUTE .STK-MED ONE Stop: 01/12/19 11:54 Acetaminophen 1,000 mg/ Premix 100 mls @ 400 mls/hr IV ONARRIVE [facility] Last Admin: 01/12/19 11:15 Dose: 400 mls/hr Cefazolin Sodium/Dextrose 1 gm (/ Premix) 50 mls @ 100 mls/hr IV ONCALL [facility] Ropivacaine 49.25 ml/Ketorolac Tromethamine 30 mg/Epinephrine HCl 0.5 mg/ Clonidine HCl 80 mcg/ Sodium Chloride 75 mls @ 50 mls/sec INJECT ASDIRECTED [facility] Sodium Chloride (Normal Saline) Confirm Administered Dose 20 mls @ as directed .ROUTE .STK-MED ONE Stop: 01/12/19 11:58 Cefazolin Sodium/Dextrose 1 gm (/ Premix) 50 mls @ 100 mls/hr IV Q8H [facility] Stop: 01/13/19 04:29 Last Admin: 01/13/19 03:16 Dose: 100 mls/hr Midazolam HCl (Versed 1 Mg/Ml) Confirm Administered Dose 2 mg .ROUTE .STK-MED ONE Stop: 01/12/19 11:54 Ondansetron HCl (Zofran) Confirm Administered Dose 4 mg .ROUTE .STK-MED ONE Stop: 01/12/19 11:54 Promethazine HCl (Phenergan) Confirm Administered Dose 25 mg .ROUTE .STK-MED ONE Stop: 01/12/19 14:35 Last Admin: 01/12/19 14:37 Dose: 12.5 mg Propofol (Diprivan 20 Ml) Confirm Administered Dose 200 mg .ROUTE .STK-MED ONE Stop: 01/12/19 11:54 Propofol (Diprivan 20 Ml) Confirm Administered Dose 200 mg .ROUTE .STK-MED ONE Stop: 01/12/19 13:13 Tranexamic Acid (Cyklokapron) Confirm Administered Dose 2,000 mg .ROUTE .STK- MED ONE Stop: 01/12/19 10:39 - Exam Wound/Incisions: Dressing Dry and Intact. No: Drainage, Erythema General: Alert, Oriented Cardiovascular: Regular Rate, Regular Rhythm Extremities: Other (exam LLE - at/ehl/gastroc 5/5, dp 2+, sensation intact distally. incision c/d/allison intact. ) Physical Findings Comment:: vss, afeb hgb 11.5 - Problem List Review Problem List Initiated/Reviewed/Updated: Yes - My Orders Last 24 Hours: Active Orders 24 hr Category Date Time Status Communication Order [RC] PRN Care 01/12/19 13:42 Active Communication Order [RC] PRN Care 01/12/19 13:42 Active Insert Urinary Catheter [OM.PC] Q24H Care 01/12/19 08:00 Ordered Neurovascular Check [RC] Q2HR Care 01/12/19 13:42 Active Notify Provider Vital Signs [RC] ASDIRECTED Care 01/12/19 13:42 Active RT Incentive Spirometry [RC] Q1HWA Care 01/12/19 13:42 Active Vital Signs [RC] Q4H Care 01/12/19 13:42 Active Wound Care [RC] DAILY Care 01/12/19 13:42 Active PT Evaluation and Treatment [CONS] Routine Cons 01/12/19 13:42 Active HEMOGLOBIN/HEMATOCRIT,HH [HEME] DAILY Lab 01/14/19 06:00 Ordered Acetaminophen/oxyCODONE [Percocet 325-5 MG] Med 01/12/19 13:44 Active 1 - 2 tab PO Q4H PRN Alum Hydrox/Mag Hydrox/Simeth [Mag-Al Plus] Med 01/12/19 13:42 Active 30 ml PO Q4H PRN Apixaban [Eliquis] Med 01/13/19 09:00 Active 2.5 mg PO BID Bisacodyl [Dulcolax] Med 01/12/19 13:42 Active 10 mg RECTAL DAILY PRN Celecoxib [CeleBREX] Med 01/13/19 09:00 Active 200 mg PO BID Docusate Sodium [Colace] Med 01/12/19 13:42 Active 100 mg PO BID PRN Famotidine [Pepcid] Med 01/13/19 09:00 Active 40 mg PO DAILY HYDROmorphone [Dilaudid] Med 01/12/19 13:42 Active 0.5 - 1 mg IVPUSH Q3H PRN Ondansetron [Zofran] Med 01/12/19 13:42 Active 4 mg IVPUSH Q6H PRN Polyethylene Glycol 3350 [MiraLAX] Med 01/13/19 09:00 Active 17 gm PO DAILY Sodium Chloride 0.9% [Saline Flush] Med 01/12/19 13:42 Active 10 ml FLUSH ASDIRECTED PRN Sodium Chloride 0.9% [Saline Flush] Med 01/12/19 13:42 Active 2.5 ml FLUSH ASDIRECTED PRN Venlafaxine [Effexor XR] Med 01/13/19 09:00 Active 150 mg PO DAILY diphenhydrAMINE [Benadryl] Med 01/12/19 13:42 Active 25 - 50 mg PO Q6H PRN Convert IV to Saline Lock [OM.PC] PRN Oth 01/13/19 06:00 Ordered Ice Therapy [OM.PC] Routine Oth 01/12/19 13:42 Ordered Medication Orders Al Hydroxide/Mg Hydroxide (Mag-Al Plus) 30 ml PO Q4H PRN PRN Reason: Indigestion Apixaban (Eliquis) 2.5 mg PO BID [facility] Bisacodyl (Dulcolax) 10 mg RECTAL DAILY PRN PRN Reason: Constipation Celecoxib (Celebrex) 200 mg PO BID [facility] Diphenhydramine HCl (Benadryl) 25 - 50 mg PO Q6H PRN PRN Reason: Itching Docusate Sodium (Colace) 100 mg PO BID PRN PRN Reason: Constipation Famotidine (Pepcid) 40 mg PO DAILY [facility] Hydromorphone HCl (Dilaudid) 0.5 - 1 mg IVPUSH Q3H PRN PRN Reason: Pain Last Admin: 01/13/19 05:47 Dose: 1 mg Admin: 01/12/19 18:22 Dose: 1 mg Lactated Ringer's (Ringers, Lactated) 1,000 mls @ 100 mls/hr IV ASDIRECTED [facility] Last Admin: 01/13/19 03:16 Dose: 100 mls/hr Infusion: 01/13/19 03:07 Dose: 100 mls/hr Admin: 01/12/19 17:07 Dose: 100 mls/hr Infusion: 01/12/19 17:07 Dose: 100 mls/hr Admin: 01/12/19 11:12 Dose: 100 mls/hr Ondansetron HCl (Zofran) 4 mg IVPUSH Q6H PRN PRN Reason: Nausea/Vomiting Oxycodone/Acetaminophen (Percocet 325-5 Mg) 1 - 2 tab PO Q4H PRN PRN Reason: Pain Last Admin: 01/13/19 03:17 Dose: 2 tab Admin: 01/12/19 20:07 Dose: 2 tab Admin: 01/12/19 15:51 Dose: 2 tab Polyethylene Glycol (Miralax) 17 gm PO DAILY [facility] Scopolamine (Transderm-Scop) 1.5 mg TRDERM ONARRIVE [facility] Last Admin: 01/12/19 11:13 Dose: 1.5 mg Sodium Chloride (Saline Flush) 10 ml FLUSH ASDIRECTED PRN PRN Reason: Keep Vein Open Sodium Chloride (Saline Flush) 2.5 ml FLUSH ASDIRECTED PRN PRN Reason: Keep Vein Open Venlafaxine HCl (Effexor Xr) 150 mg PO DAILY [facility] - Assessment Assessment (Free Text/Narrative):: POD#1 revision L TKA acute posthemorrhagic anemia - Plan Plan (Free Text/Narrative):: DC IV fluids - saline lock IV DC brizuela dilaudid IV prn breakthrough pain percocet 5/325 prn available Eliqius 2.5mg PO BID as DVT prophylaxis dressing changed to aquacel PT today - NO ROM to L KNEE, WBAT LLE, knee immobilizer in place pt has wheeled walker or script has been written anticipate up to 72 hour stay for IV pain medication and continued physical therapy pt will require FWW for safe mobility/stability until increased strength/gait independence s/p revision TKA - has been safely mobilizing in room with FWW. d/ch medications written - will discharge today
[2019-01-13] MEDS ORDERED: Polyethylene Glycol 3350 Powder 17 GM Packet PO SCH (09:00)
[2019-01-13] MEDS ORDERED: Venlafaxine 75 MG Cap.ER PO SCH (09:00)
[2019-01-13] MEDS ORDERED: Famotidine 20 MG Tab PO SCH (09:00)
[2019-01-13] MEDS ORDERED: Celecoxib 100 MG Cap PO SCH (09:00)
[2019-01-13] MEDS ORDERED: Apixaban 2.5 MG Tab PO SCH (09:00)
--- NOTE | 2019-01-13 10:42 | PCM48HPAN ---
Post Anesthesia Note - EVALUATION WITHIN 48HRS OF ANESTHETIC Vital Signs in Normal Range: Yes Patient Participated in Evaluation: Yes Respiratory Function Stable: Yes Airway Patent: Yes Cardiovascular Function Stable: Yes Hydration Status Stable: Yes Pain Control Satisfactory: Yes Nausea and Vomiting Control Satisfactory: Yes Mental Status Recovered: Yes Pulse Rate: 76 SaO2: 94 Resp Rate: 18 Temperature: 36.7 C Blood Pressure: 112/66 - COMMENTS/OBSERVATIONS Free Text/Narrative:: Doing well. Minimal discomfort. Will be discharged today.
--- NOTE | 2019-01-14 08:38 | DISCH ---
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 OTHER MEDICAL DIAGNOSES: 1. History of deep vein thrombosis/pulmonary embolism. 2. Anxiety. DISCHARGE DIAGNOSES: 1. 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 2. History of deep vein thrombosis/pulmonary embolism. 3. Anxiety. 4. Acute post hemorrhagic anemia. BRIEF HISTORY: Suly is a 53-year-old female, who has previously undergone bilateral total knee arthroplasty. Her postoperative course was complicated by arthrofibrosis of both knees, and she subsequently underwent bilateral total knee arthroplasty manipulation approximately one year ago. She went on to do quite well. Approximately 1-1/2 weeks ago, she noticed increased pain and swelling in the left knee. She was evaluated in clinic and found to have lateral displacement of the patella, consistent with patellar instability. Synovasure study was done and was negative for infection. At that time, surgical treatment was recommended. On January 12, 2019, the patient underwent revision of left total knee arthroplasty with exchange of polyethylene liner done by Dr. Binta Gerardo. This was done under spinal with sedation. Estimated blood loss was 25 mL. There were no known complications. Upon completion of procedure, the patient was transferred to the PACU and subsequently to [facility] [place] for postoperative care. HOSPITAL COURSE: Postoperatively, the patient did well. Her pain was controlled with a combination of oral and IV pain medications. Physical therapy followed her through her hospital stay, with no range of motion to the left knee. She has been in a knee immobilizer. Eliquis 2.5 mg was started on postoperative day #1 as DVT prophylaxis. Her pain has been controlled with a combination of oral and IV pain medications. She was given two doses of antibiotics postoperatively for a total of 24 hours of antibiotic coverage. At this time, the patient is doing well. Her vital signs have been stable. She has been afebrile. Her hemoglobin on the morning of January 13, 2019 was 11.5. Her pain is controlled with oral pain medications. She is ambulating well with a wheeled walker with her knee immobilizer in place. She feels comfortable with discharge to home this afternoon. DISCHARGE MEDICATIONS: 1. Percocet 5/325. 2. Zofran 4 mg ODT. 3. Celebrex 200 mg. 4. Eliquis 2.5 mg. 5. Colace 100 mg. 6. MiraLAX. For complete medication reconciliation, please refer back to the patient's EHR. For complete discharge instructions, please refer back to the patient's EHR. Should she have questions or concerns prior to followup, she has been advised to contact the clinic. RUBÉN SOSA /[id number]
== END 2019-01-13 12:15 | disposition home or self-care (01) | DRG 302 ==
LOC: MW.MS 09:41 → EDSTATUS 10:00
PROVIDERS: ADMIT Orthopaedic Surgery; ATTEND Orthopaedic Surgery
PROC: 0SPD09Z Removal of Liner from Left Knee Joint, Open Approach (ICD-10-PCS; principal; 2019-01-12)
PROC: 0SUW09Z Supplement Left Knee Joint, Tibial Surface with Liner, Open Approach (ICD-10-PCS; 2019-01-12)
DX: T84.84XA Pain due to internal orthopedic prosthetic devices, implants and grafts, initial encounter (principal); M23.52 Chronic instability of knee, left knee; F41.9 Anxiety disorder, unspecified; D62 Acute posthemorrhagic anemia; F32.9 Major depressive disorder, single episode, unspecified; Z90.49 Acquired absence of other specified parts of digestive tract; Z90.13 Acquired absence of bilateral breasts and nipples; Z90.710 Acquired absence of both cervix and uterus; Z86.718 Personal history of other venous thrombosis and embolism; Z79.899 Other long term (current) drug therapy; Z96.651 Presence of right artificial knee joint
CPT/HCPCS: 01402; 36415; 85014; 85018; 86850; 86900; 86901; 97161-GP; 97530-GP; A4217; A9270-GY; C1776; J0131; J0690; J1170; J2250; J2405; J2550; J2704; J3010; J3490; J7120